=== PATIENT | female | born 2000 | race Caucasian/White ===

== ENCOUNTER 2022-02-27 11:05 | Emergency (ER) | payer OTHER, SELFPAY ==
[2022-02-27 11:16] VITALS: BP 105/61; PULSE 102; RESP 14; TEMP 37.2; O2SAT 99
--- NOTE | 2022-02-27 11:52 | ED.GENADULT ---
HPI - General Adult General Chief complaint: Upper Respiratory Infection Stated complaint: pink eye and upper respiratory Source: patient Mode of arrival: ambulatory Limitations: no limitations History of Present Illness HPI narrative: Patient presents for evaluation of sick symptoms for the last 3 days. Symptoms include sinus congestion, yellow nasal discharge, productive cough of yellow sputum and sore throat. No fever, chills, nausea, vomiting. Her son has similar symptoms. No personal history of COVID. She has had COVID vaccination. She is currently , approximately 8 weeks gestation. No vaginal bleeding or abdominal pain. He has an appointment with her CHIEF SCIENTIFIC OFFICER this coming Monday for an ultrasound. She also reports right eye redness and irritation that started today yesterday. She woke up with her right eye matted with thick mucopurulent discharge from her eye. She states that her son had pinkeye about 1 week ago. Related Data Home Medications Medication Instructions Recorded Confirmed polyethylene glycol 3350 17 17 g PO DAILY 02/27/22 02/27/22 gram/dose oral powder (Miralax) vit no.95-ferrous 1 tablet PO DAILY 02/27/22 02/27/22 fumarate 28 mg-folic acid 800 mcg tablet () Allergies Allergy/AdvReac Type Severity Reaction Status Date / Time Penicillins Allergy Mild Rash Verified 02/27/22 11:29 Review of Systems Review of Systems: CONSTITUTIONAL: Denies fever, chills, or sweats. EYES: Reports right eye redness with thick discharge and associated irritation ENT: Reports sinus congestion, thick yellow drainage from her nares, and sore throat CARDIOVASCULAR: Denies chest pain, palpitations, or edema. RESPIRATORY: Reports productive cough of yellow sputum. Denies shortness of breath. GASTROINTESTINAL: Denies abdominal pain, nausea, vomiting, or diarrhea. GENITOURINARY: Denies dysuria or hematuria. SKIN: Denies rash or itching. MUSCULOSKELETAL: Denies back pain, joint pain, or myalgia. NEUROLOGIC: Denies headache, numbness, dizziness, or weakness. PSYCHIATRIC: Denies anxiety or depression. [facility] Past Medical History Medical History (Updated 02/27/22 @ 12:23 by Orlin Jeffrey, ISAI, SARAH) No pertinent past medical history Surgical History Surgical History No pertinent past surgical history Family History Family History Mother Family history non-contributory Social History Social History Smoking status: Never smoker Alcohol intake: never Additional living arrangements comments: Lives with fianc? and son Gender identity (if verbalized by the patient): Female Sexual Orientation (if Verbalized by the Patient): Straight or Heterosexual Spiritual care concerns: No Exam Narrative: GENERAL: Well-appearing, well-nourished, and in no acute distress. HEAD: Normocephalic, atraumatic. EYES: PERRLA and EOMI. right conjunctival injection. ENT: Nares clear, no rhinorrhea or epistaxis. Mucous membranes moist. Oropharynx without tonsillar hypertrophy exudate or other lesions. Bilateral TMs pearly gordon nonbulging NECK: Supple. No adenopathy or masses. No carotid bruits or JVD CHEST: Clear to auscultation. No respiratory distress. No wheezes rales or rhonchi HEART: Regular rate and rhythm. No murmur heard. Normal peripheral pulses. ABDOMEN: Soft, nontender, nondistended, normal active bowel sounds. EXTREMITIES: Normal range of motion. No edema. SKIN: Warm, dry, no rash. NEURO: No focal deficits. Alert and oriented x3. PSYCH: Normal mood and affect. Course Course Emergency Course: This is a 21-year-old female who presented with complaints of right eye irritation after she was exposed to pinkeye. Her physical exam is consistent with bacterial conjunctivitis. In terms of her sick symptoms
== END 2022-02-27 12:25 | disposition home or self-care (01) ==
PROVIDERS: Emergency Provider Nurse Practitioner
DX: O99.891 Other specified diseases and conditions complicating pregnancy (principal); Z3A.08 8 weeks gestation of pregnancy; H10.31 Unspecified acute conjunctivitis, right eye; O98.511 Other viral diseases complicating pregnancy, first trimester; B34.9 Viral infection, unspecified
CPT/HCPCS: 87081; 87880; 99203; G0463

== ENCOUNTER 2022-03-20 16:28 | Emergency (ER) | payer OTHER, SELFPAY ==
--- NOTE | 2022-03-20 16:32 | ED.URI ---
HPI - URI/Sore Throat General Chief Complaint: Upper Respiratory Infection Stated Complaint: Shortness of Breath/Cough Time Seen by Provider: 03/20/22 16:32 Source: patient and RN notes reviewed History of Present Illness HPI Narrative: Patient is a 21-year-old female who presents the urgent care with complaints of persistent cough. Patient was evaluated at our facility recently and had a negative strep test and was diagnosed with an upper respiratory infection and suggested to take Robitussin-DM. Patient states that she has not tried anything [id number] and has not followed up with her BLOOD BANK WORKER or her physician. Patient is currently . Denies of any fevers, nausea, vomiting or chest pain. No other acute complaints. No acute distress noted. Patient aware of the plan of care. Some parts of this dictation were generated by voice recognition software and may contain typographical and/or grammatical inaccuracies. Related Data Home Medications Medication Instructions Recorded Confirmed polyethylene glycol 3350 17 17 g PO DAILY 02/27/22 02/27/22 gram/dose oral powder (Miralax) vit no.95-ferrous 1 tablet PO DAILY 02/27/22 02/27/22 fumarate 28 mg-folic acid 800 mcg tablet () Allergies Allergy/AdvReac Type Severity Reaction Status Date / Time Penicillins Allergy Mild Rash Verified 03/20/22 16:45 Review of Systems Review of Systems: CONSTITUTIONAL: Denies fever, chills, or sweats. EYES: Denies visual changes, redness, or discharge. ENT: Denies rhinorrhea, congestion, sore throat, or otalgia. CARDIOVASCULAR: Denies chest pain, palpitations, or edema. RESPIRATORY: Reports a persistent cough without dyspnea GASTROINTESTINAL: Denies abdominal pain, nausea, vomiting, or diarrhea. GENITOURINARY: Denies dysuria or hematuria. SKIN: Denies rash or itching. MUSCULOSKELETAL: Denies back pain, joint pain, or myalgia. NEUROLOGIC: Denies headache, numbness, or weakness. All other systems reviewed are negative, except as documented in HPI. [facility] Past Medical History Medical History (Updated 03/20/22 @ 17:09 by ISAI Delcid) No pertinent past medical history Surgical History Surgical History No pertinent past surgical history Family History Family History Mother Family history non-contributory Social History Social History Smoking status: Never smoker Alcohol intake: never Additional living arrangements comments: Lives with fianc? and son Gender identity (if verbalized by the patient): Female Sexual Orientation (if Verbalized by the Patient): Straight or Heterosexual Spiritual care concerns: No Comments At the time of my signature, I reviewed and agree with the nursing past medical, surgical, social, and family history. There is no relevant family history pertinent to the patient complaint. Exam Narrative: GENERAL: This is a well-nourished, well-developed patient, in no apparent distress. HEAD: normocephalic, atraumatic. EYES: PERRL. Sclera clear/white. Vision is grossly intact. EARS: External ears normal, auditory canals clear and without drainage, TMs normal without perforation. Hearing grossly intact. NOSE: External nose normal with no obvious nasal discharge, nares without redness, no rhinorrhea. THROAT: Mucous membranes moist, posterior pharynx clear. NECK: Neck supple CARDIOVASCULAR: Regular rate and rhythm without murmurs, gallops, or rubs. RESPIRATORY: Clear to auscultation. Breath sounds equal bilaterally. No wheezes, rales, or rhonchi. No notable cough or dyspnea noted on exam SKIN: warm, intact with no suspicious lesions or rash, good texture and turgor. NEURO: awake, alert, and oriented to person, place and time. There were no obvious focal neurologic abnormalities. EXTREMITIE
[2022-03-20 16:38] VITALS: BP 110/61; PULSE 106; RESP 14; TEMP 36.9; O2SAT 100
[2022-03-20 16:46] VITALS: BP 110/61; PULSE 106; RESP 14; TEMP 36.9; O2SAT 100
== END 2022-03-20 17:10 | disposition home or self-care (01) ==
PROVIDERS: Emergency Provider Nurse Practitioner Family
DX: R05.3 Chronic cough (principal)
CPT/HCPCS: 99211; G0463

== ENCOUNTER 2022-07-23 15:31 | Emergency (ER) | payer OTHER, SELFPAY ==
[2022-07-23 15:42] VITALS: BP 106/59; PULSE 126; RESP 16; TEMP 36.5; O2SAT 100
--- NOTE | 2022-07-23 15:55 | ED.URI ---
HPI - URI/Sore Throat General Chief Complaint: Upper Respiratory Infection Stated Complaint: Chest Congestion/Cough Time Seen by Provider: 07/23/22 15:55 History of Present Illness HPI Narrative: patient presents with a 4 day hisotry of congestion sore throat cough and fever no shortness of breath and no chest pain patient is 28 weeks with no related problems. Related Data Home Medications Medication Instructions Recorded Confirmed polyethylene glycol 3350 17 17 g PO DAILY 02/27/22 07/23/22 gram/dose oral powder (Miralax) vit no.95-ferrous 1 tablet PO DAILY 02/27/22 07/23/22 fumarate 28 mg-folic acid 800 mcg tablet () ferrous sulfate 325 mg (65 mg 325 mg DAILY 07/23/22 07/23/22 iron) tablet (FeroSul) Allergies Allergy/AdvReac Type Severity Reaction Status Date / Time Penicillins Allergy Mild Rash Verified 07/23/22 15:49 cinthia Allergy Rash Verified 07/23/22 15:49 Review of Systems Review of Systems: CONSTITUTIONAL: Denies chills, or sweats. Reports fever and generalized body aches EYES: Denies visual changes, redness, or discharge. ENT: Denies otalgia. Reports nasal congestion runny nose and sore throat CARDIOVASCULAR: Denies chest pain, palpitations, or edema. RESPIRATORY: Denies dyspnea. Reports occasional cough GASTROINTESTINAL: Denies abdominal pain, nausea, vomiting, or diarrhea. GENITOURINARY: Denies dysuria or hematuria. SKIN: Denies rash or itching. MUSCULOSKELETAL: Denies back pain, joint pain, or myalgia. Reports generalized body aches NEUROLOGIC: Denies headache, numbness, or weakness. PSYCHIATRIC: Denies anxiety or depression. [facility] Past Medical History Medical History (Updated 07/23/22 @ 16:37 by ISAI Cunningham) No pertinent past medical history Surgical History Surgical History No pertinent past surgical history Family History Family History Mother Family history non-contributory Social History Social History Smoking status: Never smoker Alcohol intake: never Additional living arrangements comments: Lives with figrisel? and son Gender identity (if verbalized by the patient): Female Sexual Orientation (if Verbalized by the Patient): Straight or Heterosexual Spiritual care concerns: No Comments At time of signature, agree with nursing past medical, surgical, social and family history. There is no relevant family history pertinent to the presenting complaint Exam Narrative: The patient is a well-developed, well-nourished in no acute distress. SKIN: Skin is warm and dry without erythema, swelling or exudate. There is good turgor. No tenting. HEAD: Atraumatic. Normocephalic. No temporal or scalp tenderness. EYES: Moist and bright. Sclera and conjunctivae normal. No discharge. PERRLA. Extraocular motions intact. Gross visual acuity intact. EARS: Pinna is normal shape and contour. Clear external auditory canals. TM pearly love with good cone of light, no erythema or suppuration. Bilateral cerumen noted no gross hearing deficit. NOSE: pink, moist mucosa with good air movement. Clear rhinorrhea without nasal flaring. Septum midline. Mouth: moist mucous membranes. THROAT; mild erythema noted to posterior oropharynx with moderate postnasal drainage. Without exudate or ulceration.. Uvula midline. Normal movement of soft palate. NECK: Supple and nontender with full range of motion without discomfort. No meningeal signs. LUNGS: Equal and bilateral breath sounds without wheezes, rales or rhonchi. CHEST: The chest wall is without retractions or use of accessory muscles. HEART: Has a regular rate and rhythm without murmur, gallops, click or rub. ABDOMEN: Soft, nontender with positive active bowel sounds. No rebound tenderness. EXTREMITIES: Without cyanosi
== END 2022-07-23 16:43 | disposition home or self-care (01) ==
PROVIDERS: Emergency Provider Nurse Practitioner Family
DX: O98.513 Other viral diseases complicating pregnancy, third trimester (principal); Z3A.28 28 weeks gestation of pregnancy; B34.9 Viral infection, unspecified; J10.1 Influenza due to other identified influenza virus with other respiratory manifestations; Z20.822 Contact with and (suspected) exposure to COVID-19
CPT/HCPCS: 87081; 87426; 87804; 87880; 99213; C9803; G0463

== ENCOUNTER 2023-02-20 17:33 | Emergency (ER) | payer OTHER, SELFPAY ==
[2023-02-20 17:36] VITALS: BP 119/79; PULSE 71; RESP 20; TEMP 36.7; O2SAT 100
--- NOTE | 2023-02-20 17:36 | ED.EYEPROB ---
HPI - Eye Problem General Chief complaint: Eye Problems Stated complaint: poss pink eye History of Present Illness HPI Narrative: PATIENT PRESENTS WITH EYE REDDNESS AND CRUSTING NO INJURY TO EYE NO VISION PROBLEMS EXPOSED TO PINK EYE RIGHT EYE Related Data Home Medications Medication Instructions Recorded Confirmed ferrous sulfate 325 mg (65 mg 325 mg PO DAILY 07/23/22 02/20/23 iron) tablet (FeroSul) medroxyprogesterone 150 mg/mL 150 mg IM [id number] 02/20/23 02/20/23 intramuscular syringe paroxetine HCl 20 mg tablet 20 mg PO DAILY 02/20/23 02/20/23 Allergies Allergy/AdvReac Type Severity Reaction Status Date / Time Penicillins Allergy Mild Rash Verified 02/20/23 17:40 cinthia Allergy Rash Verified 02/20/23 17:40 Review of Systems Review of Systems: CONSTITUTIONAL: DENIES FEVER, CHILLS, OR SWEATS. EYES: DENIES VISUAL CHANGES, REDNESS, OR DISCHARGE. ENT: DENIES RHINORRHEA, CONGESTION, SORE THROAT, OR OTALGIA. CARDIOVASCULAR: DENIES CHEST PAIN, PALPITATIONS, OR EDEMA. RESPIRATORY: DENIES COUGH OR DYSPNEA. GASTROINTESTINAL: DENIES ABDOMINAL PAIN, NAUSEA, VOMITING, OR DIARRHEA. GENITOURINARY: DENIES DYSURIA OR HEMATURIA. SKIN: DENIES RASH OR ITCHING. MUSCULOSKELETAL: DENIES BACK PAIN, JOINT PAIN, OR MYALGIA. NEUROLOGIC: DENIES HEADACHE, NUMBNESS, OR WEAKNESS. PSYCHIATRIC: DENIES ANXIETY OR DEPRESSION. [facility] Past Medical History Medical History (Updated 02/20/23 @ 17:40 by ISAI Cunningham) No pertinent past medical history Surgical History Surgical History No pertinent past surgical history Family History Family History Mother Family history non-contributory Social History Social History Smoking status: Never smoker Alcohol intake: never Additional living arrangements comments: Lives with fianc? and son Gender identity (if verbalized by the patient): Female Sexual Orientation (if Verbalized by the Patient): Straight or Heterosexual Spiritual care concerns: No Comments AT TIME OF SIGNATURE, AGREE WITH NURSING PAST MEDICAL, SURGICAL, SOCIAL AND FAMILY HISTORY. THERE IS NO RELEVANT FAMILY HISTORY PERTINENT TO THE PRESENTING COMPLAINT Exam Narrative: GENERAL: WELL-APPEARING, WELL-NOURISHED, AND IN NO ACUTE DISTRESS. HEAD: NORMOCEPHALIC, ATRAUMATIC. EYES: PERRLA AND EOMI. ENT: NARES CLEAR, NO RHINORRHEA OR EPISTAXIS. MUCOUS MEMBRANES MOIST. NECK: SUPPLE. CHEST: CLEAR TO AUSCULTATION. NO RESPIRATORY DISTRESS. HEART: REGULAR RATE AND RHYTHM. NO MURMUR HEARD. NORMAL PERIPHERAL PULSES. ABDOMEN: SOFT, NONTENDER, NONDISTENDED, NORMAL ACTIVE BOWEL SOUNDS. EXTREMITIES: NORMAL RANGE OF MOTION. NO EDEMA. SKIN: WARM, DRY, NO RASH. NEURO: NO FOCAL DEFICITS. ALERT AND ORIENTED X3. TRAM COMA SCALE EYE OPENING: SPONTANEOUS 4 TRAM COMA SCALE MOTOR: OBEYS COMMANDS 6 TRAM COMA SCALE VERBAL: ORIENTED 5 TRAM COMA SCALE TOTAL 15 Eyes: Conjunctivae: conjunctival abnormality (CONJUNCTIVITIS) right Course Course Level of Care: Express Care Visit MDM - Eye Problem Differential Diagnosis Differential diagnosis: Likely corneal abrasion, conjunctivitis, acute iritis, hyphema, periorbital cellulitis, subconjunctival hemorrhage, glaucoma, corneal ulcer and ruptured globe Discharge Plan Discharge Clinical Impression: Bacterial conjunctivitis Patient Disposition: Home, Self-Care Condition: Stable Instructions: Antibiotic Form, Conjunctivitis (ED) Additional Instructions: Conjunctivitis is spread by [id number] contact or by touching a contaminated surface. You can use artificial tears, cold and warm compresses-use, different compress for each eye, and increase hygiene such as hand-washing. Do not wear contacts for 1 week, if applicable. Do not return for 24 hours to daycare, school, workp
[2023-02-20 17:41] VITALS: BP 119/79; PULSE 71; RESP 20; TEMP 36.7; O2SAT 100
== END 2023-02-20 17:50 | disposition home or self-care (01) ==
PROVIDERS: Emergency Provider Nurse Practitioner Family
DX: H10.9 Unspecified conjunctivitis (principal)
CPT/HCPCS: 99213; G0463

== ENCOUNTER 2023-04-03 09:04 | Emergency (ER) | payer OTHER, SELFPAY ==
--- NOTE | 2023-04-03 09:09 | ED.URI ---
HPI - URI/Sore Throat General Chief Complaint: Upper Respiratory Infection Stated Complaint: Headache/Fever Time Seen by Provider: 04/03/23 09:09 Source: patient Mode of arrival: ambulatory Limitations: no limitations History of Present Illness HPI Narrative: Azalia is a 22-year-old female patient presenting to the clinic today with complaints of headache and fever x2 days. States highest fever was 100? F. No chills or body aches. She reports she has had positive exposure to someone with COVID. MD elicited complaint: fever and other (Headache) Related Data Home Medications Medication Instructions Recorded Confirmed ferrous sulfate 325 mg (65 mg 325 mg PO DAILY 07/23/22 04/03/23 iron) tablet (FeroSul) paroxetine HCl 20 mg tablet 20 mg PO DAILY 02/20/23 04/03/23 Allergies Allergy/AdvReac Type Severity Reaction Status Date / Time cinthia Allergy Mild Rash Verified 04/03/23 09:38 Penicillins Allergy Mild Rash Verified 04/03/23 09:38 Review of Systems Review of Systems: Pertinent positives per HPI. Patient denies any chills, rash, visual changes, dizziness, cough, shortness of breath, chest pain, palpitations, nausea, vomiting, diarrhea, constipation, abdominal pain, or any urinary issues. [facility] Past Medical History Medical History No pertinent past medical history Surgical History Surgical History No pertinent past surgical history Family History Family History Mother Family history non-contributory Social History Social History Smoking status: Never smoker Alcohol intake: never Additional living arrangements comments: Lives with fianc? and son Gender identity (if verbalized by the patient): Female Sexual Orientation (if Verbalized by the Patient): Straight or Heterosexual Spiritual care concerns: No Comments At the time of my signature, I reviewed and agree with the nursing past medical, surgical, social, and family history. There is no relevant family history pertinent to the patient complaint. Exam Narrative: General: Well-developed, well nourished, in no apparent distress Head: Normocephalic, atraumatic Eyes: Pupils equally round and reactive to light bilaterally, EOM intact, sclera and conjunctive clear, no discharge, lids normal Ears: TMs intact and clear, ear canals ceremonious, no drainage, grossly hearing normal. Nose: Nares patent, no discharge, no inflammation, no sinus tenderness. Mouth: Oral pharynx without lesions or masses, good dentition, MMM. Neck: Supple, trachea midline, no enlargement of anterior or posterior cervical nodes, no thyroid masses or goiter palpable. Cardio: Regular rate and rhythm, s1 and s2 normal, no murmur appreciated. Resp: Clear to auscultation bilaterally, no rhonchi, rales, wheezing or rubs Course Course Emergency Course: Portions of this record may have been created with voice recognition software. Level of Care: Express Care Visit Vital Signs Vital signs: Vital signs reviewed MDM - URI/Sore Throat MDM Narrative Medical decision making narrative: At the time of visit patient is resting comfortably on the exam table. COVID testing was performed and is negative in the clinic today. I suspect patient has viral syndrome with an exposure to COVID. Supportive measures were discussed with the patient she voiced understanding of discharge instructions and she agrees to treatment plan. Work note was given. Differential Diagnosis Differential diagnosis: Likely upper respiratory infection, otitis media, sinusitis, viral infection, bronchitis, influenza, pharyngitis and other (COVID) Discharge Plan Discharge Clinical Impression: Viral infection, Exposure to 2019 novel coronavirus Patient
[2023-04-03 09:20] VITALS: BP 116/68; PULSE 86; RESP 16; TEMP 36.4; O2SAT 100
== END 2023-04-03 09:57 | disposition home or self-care (01) ==
PROVIDERS: Emergency Provider Nurse Practitioner Family
DX: B34.9 Viral infection, unspecified (principal); Z20.822 Contact with and (suspected) exposure to COVID-19
CPT/HCPCS: 87426; 99213; C9803; G0463

== ENCOUNTER 2023-05-15 17:38 | Emergency (ER) | payer OTHER, SELFPAY ==
[2023-05-15 17:44] VITALS: BP 129/74; PULSE 90; RESP 16; TEMP 36.7; O2SAT 100
--- NOTE | 2023-05-15 18:04 | ED.EXTPRO ---
HPI - Extremity Problem General Chief complaint: Extremity Problem,Nontraumatic Stated complaint: left thumb Source: patient and RN notes reviewed History of Present Illness HPI Narrative: 23 yo F presents to urgent care with complaints of left thumb pain with blister. Pt states she woke up this morning with random left thumb pad pain. Pt noticed a little redness so she put Neosporin on it and a bandaid. Pt states she looked at it today and a blister to the area. Pt reports tenderness to the area. Denies any known injury. Denies any other symptoms. Related Data Home Medications Medication Instructions Recorded Confirmed ferrous sulfate 325 mg (65 mg 325 mg PO DAILY 07/23/22 04/03/23 iron) tablet (FeroSul) paroxetine HCl 20 mg tablet 20 mg PO DAILY 02/20/23 04/03/23 Allergies Allergy/AdvReac Type Severity Reaction Status Date / Time cinthia Allergy Mild Rash Verified 04/03/23 09:38 Penicillins Allergy Mild Rash Verified 04/03/23 09:38 Review of Systems Review of Systems: CONSTITUTIONAL: Denies fever, chills, or sweats. EYES: Denies visual changes, redness, or discharge. ENT: Denies otalgia and sore throat CARDIOVASCULAR: Denies chest pain, palpitations, or edema. RESPIRATORY: Denies cough or dyspnea. GASTROINTESTINAL: Denies abdominal pain, nausea, vomiting, or diarrhea. GENITOURINARY: Denies dysuria or hematuria. SKIN: Left thumb pain MUSCULOSKELETAL: Denies back pain, joint pain, or myalgia. NEUROLOGIC: Denies headache, numbness, or weakness. Pertinent positives per HPI. [facility] Past Medical History Medical History No pertinent past medical history Surgical History Surgical History No pertinent past surgical history Family History Family History Mother Family history non-contributory Social History Social History Smoking status: Never smoker Alcohol intake: never Additional living arrangements comments: Lives with fianc? and son Gender identity (if verbalized by the patient): Female Sexual Orientation (if Verbalized by the Patient): Straight or Heterosexual Spiritual care concerns: No Comments At the time of my signature, I reviewed and agree with the nursing past medical, surgical, social, and family history. There is no relevant family history pertinent to the patient complaint. Exam Narrative: GENERAL: This is a well-nourished, well-developed patient, in no apparent distress. HEAD: normocephalic, atraumatic. EYES: Sclera clear/white. Vision is grossly intact. EARS: External ears normal, auditory canals clear and without drainage. Hearing grossly intact. NOSE: External nose normal with no obvious nasal discharge, nares without redness, no rhinorrhea. THROAT: Mucous membranes moist, posterior pharynx clear. NECK: Neck supple, non-tender without lymphadenopathy, masses or thyromegaly. CARDIOVASCULAR: Regular rate RESPIRATORY: No respiratory distress SKIN: 1 cm blister to left thumb pad with possible, small, cut under blister. tender to the touch. NEURO: awake, alert, and oriented to person, place and time. There were no obvious focal neurologic abnormalities. EXTREMITIES: No clubbing, cyanosis, or edema. No joint tenderness, effusion, or edema noted. BACK: Nontender without deformity or crepitus. No flank tenderness. Course Course Level of Care: Express Care Visit Vital Signs Vital signs: Vital Signs Temperature 98.1 F 05/15/23 17:44 Pulse Rate 90 05/15/23 17:44 Respiratory Rate 16 05/15/23 17:44 Blood Pressure 129/74 05/15/23 17:44 Pulse Oximetry 100 05/15/23 17:44 Oxygen Delivery Room Air 05/15/23 17:44 Temperature 98.1 F 05/15/23 17:44 Pulse Rate 90 05/15/23 17:44 Respiratory Rate 16
== END 2023-05-15 18:18 | disposition home or self-care (01) ==
PROVIDERS: Emergency Provider Nurse Practitioner Family
DX: S60.322A Blister (nonthermal) of left thumb, initial encounter (principal); X58.XXXA Exposure to other specified factors, initial encounter
CPT/HCPCS: 99213; G0463

== ENCOUNTER 2023-06-12 16:19 | Emergency (ER) | payer OTHER, SELFPAY ==
--- NOTE | 2023-06-12 16:46 | ED.URI ---
HPI - URI/Sore Throat General Chief Complaint: Upper Respiratory Infection Stated Complaint: Congestion/Headache/Cough Related Data Home Medications Medication Instructions Recorded Confirmed ferrous sulfate 325 mg (65 mg 325 mg PO DAILY 07/23/22 04/03/23 iron) tablet (FeroSul) paroxetine HCl 20 mg tablet 20 mg PO DAILY 02/20/23 04/03/23 Allergies Allergy/AdvReac Type Severity Reaction Status Date / Time cinthia Allergy Mild Rash Verified 04/03/23 09:38 Penicillins Allergy Mild Rash Verified 04/03/23 09:38 [facility] Past Medical History Medical History No pertinent past medical history Surgical History Surgical History No pertinent past surgical history Family History Family History Mother Family history non-contributory Social History Social History Smoking status: Never smoker Alcohol intake: never Additional living arrangements comments: Lives with fianc? and son Gender identity (if verbalized by the patient): Female Sexual Orientation (if Verbalized by the Patient): Straight or Heterosexual Spiritual care concerns: No Discharge Plan Discharge Prescriptions: No Action ferrous sulfate [FeroSul] 325 mg (65 mg iron) tablet 325 mg PO DAILY paroxetine HCl 20 mg tablet 20 mg PO DAILY mupirocin 2 % ointment 1 applic topical BID Qty: 22 0RF Follow-up/Referrals: PHYSICIAN,SNOW SHOVELER [Primary Care Provider] -
--- NOTE | 2023-06-12 16:47 | ED.GENADULT ---
HPI - General Adult General Chief complaint: Upper Respiratory Infection Stated complaint: Congestion/Headache/Cough Time Seen by Provider: 06/12/23 16:47 Source: patient, RN notes reviewed and old records reviewed Mode of arrival: ambulatory Limitations: no limitations History of Present Illness HPI narrative: 23 year old female who presents to [facility] care with complaints of sinus congestion,headache, facial pressure,with deep cough for the past 2 weeks. Patient states that she has some frontal headache pain, her upper gums hurt and her teeth even hurt.. Patient reports that she has taken Robitussin and also Mucinex for her symptoms without resolution. 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 Patient denies any recent fevers, body aches or any chills. MD complaint: sinus headache, congestion deep cough for 2 weeks Onset (ago): week(s) (2) Severity scale (1-10): 8 Treatments prior to arrival: other (Robitussin and Mucinex) Related Data Home Medications Medication Instructions Recorded Confirmed ferrous sulfate 325 mg (65 mg 325 mg PO DAILY 07/23/22 06/12/23 iron) tablet (FeroSul) paroxetine HCl 20 mg tablet 20 mg PO DAILY 02/20/23 06/12/23 Allergies Allergy/AdvReac Type Severity Reaction Status Date / Time cinthia Allergy Mild Rash Verified 06/12/23 17:02 Penicillins Allergy Mild Rash Verified 06/12/23 17:02 Review of Systems Review of Systems: CONSTITUTIONAL: Denies malaise, chills, sweats, or fever. EYES: Denies visual changes, redness, or discharge. ENT: Reports rhinorrhea, congestion, sinus pain, no otalgia, some sore throat. CARDIOVASCULAR: Denies chest pain, palpitations, or edema. RESPIRATORY: Reports deep cough.? Denies dyspnea. GASTROINTESTINAL: Denies abdominal pain, nausea, vomiting, diarrhea SKIN: Denies rash or itching. MUSCULOSKELETAL: Denies myalgia. NEUROLOGIC:Reports headache. All systems reviewed & are unremarkable except as noted in HPI and below PMFSH Past Medical History Medical History (Updated 06/13/23 @ 10:30 by Cecilia Gaitan NP) Anemia Anxiety and depression Bilateral ankle fractures Surgical History Surgical History No pertinent past surgical history Family History Family History Mother Family history non-contributory Social History Social History Smoking status: Never smoker Alcohol intake: never Additional living arrangements comments: Lives with fianc? and son Gender identity (if verbalized by the patient): Female Sexual Orientation (if Verbalized by the Patient): Straight or Heterosexual Spiritual care concerns: No Comments At time of signature, agree with nursing past medical, surgical, social and family history. There is no relevant family history pertinent to the presenting complaint Exam Narrative: GENERAL: Well-appearing, well-nourished, and in no acute distress. HEAD: Normocephalic EYES: PERRLA, conjunctivae clear ENT: Nares clear, turbinates edematous and erythematous, clear to green tinged discharge, sinus pressure and headache. Mucous membranes moist. TM pearly gordon with dull light reflex bilaterally; no tragal tenderness. Oropharynx erythematous without lesions. Tonsils not enlarged and without exudate, no drooling, no hoarseness, no trismus, uvula midline.post nasal drainage NECK: Supple. No lymphadenopathy CHEST: Clear to auscultation, breath sounds equal. No wheezing, rhonchi, rales, or stridor. No respiratory distress, speaks in full sentences.harsh cough noted SAO2 99% on room air HEART: Regular rate and rhythm. No murmur heard. SKIN: Warm, dry, no rash. NEURO: Alert and oriented x3. PSYCH: Normal mood and affect Course Course Emergency Course: Patient is aware of diagnosis, under
[2023-06-12 17:03] VITALS: BP 119/69; PULSE 83; RESP 18; TEMP 36.7; O2SAT 99
== END 2023-06-12 17:16 | disposition home or self-care (01) ==
PROVIDERS: Emergency Provider Registered Nurse
DX: J01.40 Acute pansinusitis, unspecified (principal); Z79.899 Other long term (current) drug therapy
CPT/HCPCS: 87880; 99213; G0463

== ENCOUNTER 2023-06-19 16:51 | Emergency (ER) | payer OTHER, SELFPAY ==
--- NOTE | ~2023-06-19 | XR_ITS ---
EXAMINATION: XR ribs RT 2V DATE: 06/19/2023 17:24 INDICATION: Right posterior rib pain. Fall. TECHNIQUE: 2 views of the right ribs on 3 radiographs were obtained. COMPARISON: None. FINDINGS: There is no right-sided pneumonia, pleural effusion, or pneumothorax. The heart size is nor mal. IMPRESSION: 1. No rib fracture. Reviewed, dictated and finalized at location E. IMPRESSION: 1. No rib fracture.
[2023-06-19 17:00] VITALS: BP 122/69; PULSE 85; RESP 20; TEMP 36.6; O2SAT 98
--- NOTE | 2023-06-19 17:25 | ED.URI ---
HPI - URI/Sore Throat General Chief Complaint: Back Pain/Injury Stated Complaint: Back Pain/Cough Time Seen by Provider: 06/19/23 17:05 Source: patient Mode of arrival: ambulatory Limitations: no limitations History of Present Illness HPI Narrative: Azalia is a 23-year-old female patient presenting to the clinic today with complaints of right sided thoracic back pain and a cough. Reports she coughs so hard she thinks she popped a rib out of place this morning. Was recently treated for a sinus infection and given azithromycin. States she still has a cough from this. Cough is productive at times. She denies any fever or chills. Does have pain to the right thoracic back with respirations MD elicited complaint: sore throat and nasal congestion Related Data Home Medications Medication Instructions Recorded Confirmed ferrous sulfate 325 mg (65 mg 325 mg PO DAILY 07/23/22 06/12/23 iron) tablet (FeroSul) paroxetine HCl 20 mg tablet 20 mg PO DAILY 02/20/23 06/12/23 Allergies Allergy/AdvReac Type Severity Reaction Status Date / Time cinthia Allergy Mild Rash Verified 06/19/23 17:02 Penicillins Allergy Mild Rash Verified 06/19/23 17:02 Review of Systems Review of Systems: Pertinent positives per HPI. Patient denies any fever, chills, rash, headache, visual changes, dizziness, shortness of breath, chest pain, palpitations, nausea, vomiting, diarrhea, constipation, abdominal pain, or any urinary issues. [facility] Past Medical History Medical History Anemia Anxiety and depression Bilateral ankle fractures Surgical History Surgical History No pertinent past surgical history Family History Family History Mother Family history non-contributory Social History Social History Smoking status: Never smoker Alcohol intake: never Additional living arrangements comments: Lives with fianc? and son Gender identity (if verbalized by the patient): Female Sexual Orientation (if Verbalized by the Patient): Straight or Heterosexual Spiritual care concerns: No Comments At the time of my signature, I reviewed and agree with the nursing past medical, surgical, social, and family history. There is no relevant family history pertinent to the patient complaint. Exam Narrative: General: Well-developed, well nourished, in no apparent distress Head: Normocephalic, atraumatic Eyes: Pupils equally round and reactive to light bilaterally, EOM intact, sclera and conjunctive clear, no discharge, lids normal Ears: TMs intact and clear, ear canals clear, no drainage, grossly hearing normal. Nose: Nares patent, clear discharge, no inflammation, no sinus tenderness. Mouth: Oral pharynx without lesions or masses, good dentition, MMM. Postnasal drip Neck: Supple, trachea midline, no enlargement of anterior or posterior cervical nodes, no thyroid masses or goiter palpable. Cardio: Regular rate and rhythm, s1 and s2 normal, no murmur appreciated. Resp: Clear to auscultation bilaterally, no rhonchi, rales, wheezing or rubs Musculoskeletal: No deformity, tender to palpation over rhomboid musculature, pain to this area with raising her right arm, grossly normal range of motion, muscle strength strong and equal, peripheral pulse strong, no edema, no cyanosis, normal gait and station Course Course Emergency Course: Portions of this record may have been created with voice recognition software. Level of Care: Express Care Visit Vital Signs Vital signs: Vital Signs Temperature 36.6 C 06/19/23 17:00 Pulse Rate 85 06/19/23 17:00 Respiratory Rate 20 06/19/23 17:00 Blood Pressure 122/69 06/19/23 17:00 Pulse Oximetry 98 06/19/23 17:00 Oxygen Delivery Room Air 06/19/23 17:00
== END 2023-06-19 17:37 | disposition home or self-care (01) ==
PROVIDERS: Emergency Provider Nurse Practitioner Family
DX: S46.911A Strain of unspecified muscle, fascia and tendon at shoulder and upper arm level, right arm, initial encounter (principal); J01.10 Acute frontal sinusitis, unspecified; X50.0XXA Overexertion from strenuous movement or load, initial encounter
CPT/HCPCS: 71100; 99213; G0463

== ENCOUNTER 2023-08-06 18:43 | Emergency (ER) | payer OTHER, SELFPAY ==
[2023-08-06 18:54] VITALS: BP 110/70; PULSE 79; RESP 18; TEMP 36.9; O2SAT 99
--- NOTE | 2023-08-06 19:58 | ED.GENADULT ---
HPI - General Adult General Chief complaint: Upper Respiratory Infection Stated complaint: strep Source: patient Mode of arrival: ambulatory Limitations: no limitations History of Present Illness HPI narrative: Patient presents for evaluation of cough and sore throat. Symptom onset 1-2 days ago. Her sons are both being evaluated here for similar symptoms. She reports chills, nausea, diarrhea. She denies fever and vomiting. She is not taking any medication for her symptoms. Related Data Home Medications Medication Instructions Recorded Confirmed ferrous sulfate 325 mg (65 mg 325 mg PO DAILY 07/23/22 08/06/23 iron) tablet (FeroSul) paroxetine HCl 20 mg tablet 20 mg PO DAILY 02/20/23 08/06/23 medroxyprogesterone 150 mg/mL See Rx Instructions .Route .COMPLEX 08/06/23 08/06/23 intramuscular syringe Allergies Allergy/AdvReac Type Severity Reaction Status Date / Time cinthia Allergy Mild Rash Verified 08/06/23 19:43 Penicillins Allergy Mild Rash Verified 08/06/23 19:43 Review of Systems Review of Systems: CONSTITUTIONAL: Denies fever, chills, or sweats. EYES: Denies visual changes, redness, or discharge. ENT: Reports sore throat. Denies rhinorrhea, congestion, or otalgia. CARDIOVASCULAR: Denies chest pain, palpitations, or edema. RESPIRATORY: Reports cough. Denies dyspnea. GASTROINTESTINAL: Denies abdominal pain, nausea, vomiting, or diarrhea. GENITOURINARY: Denies dysuria or hematuria. SKIN: Denies rash or itching. MUSCULOSKELETAL: Denies back pain, joint pain, or myalgia. NEUROLOGIC: Denies headache, numbness, dizziness, or weakness. PSYCHIATRIC: Denies anxiety or depression. [facility] Past Medical History Medical History Anemia Anxiety and depression Bilateral ankle fractures Surgical History Surgical History No pertinent past surgical history Family History Family History Mother Family history non-contributory Social History Social History Smoking status: Never smoker Alcohol intake: never Additional living arrangements comments: Lives with figrisel? and son Gender identity (if verbalized by the patient): Female Sexual Orientation (if Verbalized by the Patient): Straight or Heterosexual Spiritual care concerns: No Exam Narrative: GENERAL: Well-appearing, well-nourished, and in no acute distress. HEAD: Normocephalic, atraumatic. EYES: PERRLA and EOMI. ENT: Nares clear, no rhinorrhea or epistaxis. Mucous membranes moist. Posterior pharyngeal erythema without exudate. Uvula is midline. Bilateral TMs pearly gordon nonbulging NECK: Supple. No adenopathy or masses. No carotid bruits or JVD CHEST: Clear to auscultation. No respiratory distress. No wheezes rales or rhonchi HEART: Regular rate and rhythm. No murmur heard. Normal peripheral pulses. ABDOMEN: Soft, nontender, nondistended, normal active bowel sounds. EXTREMITIES: Normal range of motion. No edema. SKIN: Warm, dry, no rash. NEURO: No focal deficits. Alert and oriented x3. PSYCH: Normal mood and affect. Course Course Emergency Course: This is a 23 old female who presented for evaluation of sore throat and cough. Strep was negative. Her son's strep test is positive. Through shared decision making we opted to proceed with abx therapy. Will dc with cephalexin. Increase hydration. [id number] agents for symptom management. Follow up with primary provider. Go to the ER for worsening symptoms. Patient in agreement with plan of care. Level of Care: Express Care Visit Vital Signs Vital signs: Vital Signs Temperature 36.9 C 08/06/23 18:54 Pulse Rate 79 08/06/23 18:54 Respiratory Rate 18 08/06/23 18:54 Blood Pressure 110/70 08/06/23 18:54 Pulse Oximetry 9
== END 2023-08-06 19:30 | disposition home or self-care (01) ==
PROVIDERS: Emergency Provider Nurse Practitioner
DX: J02.9 Acute pharyngitis, unspecified (principal); Z20.818 Contact with and (suspected) exposure to other bacterial communicable diseases; D64.9 Anemia, unspecified; F41.9 Anxiety disorder, unspecified; F32.A Depression, unspecified
CPT/HCPCS: 87081; 87880; 99213; G0463

== ENCOUNTER 2023-10-14 09:48 | Emergency (ER) | payer OTHER, SELFPAY ==
[2023-10-14 09:52] VITALS: BP 113/63; PULSE 96; RESP 20; TEMP 36.8; O2SAT 98
--- NOTE | 2023-10-14 10:14 | ED.URI ---
HPI - URI/Sore Throat General Chief Complaint: Upper Respiratory Infection Stated Complaint: cough/congestion Time Seen by Provider: 10/14/23 10:14 Source: patient, RN notes reviewed and old records reviewed Mode of arrival: ambulatory Limitations: no limitations History of Present Illness HPI Narrative: 23-year-old female presents to the [facility] with complaints of cough, congestion and a sore throat for 3 days. Reports children had COVID diagnosed by home attendant 1 week ago Related Data Home Medications Medication Instructions Recorded Confirmed ferrous sulfate 325 mg (65 mg 325 mg PO DAILY 07/23/22 08/06/23 iron) tablet (FeroSul) paroxetine HCl 20 mg tablet 20 mg PO DAILY 02/20/23 08/06/23 Allergies Allergy/AdvReac Type Severity Reaction Status Date / Time cinthia Allergy Mild Rash Verified 08/06/23 19:43 Penicillins Allergy Mild Rash Verified 08/06/23 19:43 Review of Systems Review of Systems: All systems reviewed & are unremarkable except as noted in HPI and below Constitutional: Constitutional: Reports no additional constitutional complaints Eyes: Eyes: Reports no additional eye complaints ENT: Reports as per HPI and Reports sore throat Cardiovascular: Cardiovascular: Reports no additional cardiovascular complaints, Denies chest pain and Denies dyspnea Respiratory: Respiratory: Reports no additional respiratory complaints, Denies chest congestion, Denies cough and Denies dyspnea Gastrointestinal: Gastrointestinal: Reports no additional gastrointestinal complaints, Denies abdominal pain, Denies nausea and Denies vomiting Musculoskeletal: Musculoskeletal: Reports no additional musculoskeletal complaints Integumentary/Breasts: Skin/Breast: Reports system reviewed and no additional complaints, except as docu Neurologic: Reports system reviewed and no additional complaints, except as documented Psychiatric: Psychiatric: Reports no additional psychiatric complaints Allergic/Immunologic: Allergic/Immunologic: Reports no additional allergic/immunologic complaints [facility] Past Medical History Medical History Anemia Anxiety and depression Bilateral ankle fractures Surgical History Surgical History No pertinent past surgical history Family History Family History Mother Family history non-contributory Social History Social History (Reviewed 10/14/23 @ 10:40 by CRISTOBAL Romero Smoking status: Never smoker Alcohol intake: never Additional living arrangements comments: Lives with fianc? and son Gender identity (if verbalized by the patient): Female Sexual Orientation (if Verbalized by the Patient): Straight or Heterosexual Spiritual care concerns: No Comments At the time of my signature, I reviewed and agree with the nursing past medical, surgical, social, and family history. There is no relevant family history pertinent to the patient complaint. Exam Const: General: cooperative, healthy appearing, comfortable, no acute distress, well developed, alert and well nourished Nutritional Appearance: well nourished Orientation/consciousness: patient oriented x3 Limitations: no limitations HENMT: Head: normal to inspection Ears: hearing grossly normal bilaterally, external ears normal, TM's normal bilaterally, EAC's normal, mastoids normal and no periauricular adenopathy Face/Nose/Sinus: Normal external nose present, Normal nares present, Normal nasal mucous membranes and turbinates present, normal facial exam and face symmetric Face and sinus: normal facial exam and face symmetric Mouth: Yes Normal oral and palatal mucosa present, Yes lip normal and Yes moist mucous membranes Throat: posterior oropharynx normal, tonsils normal, uvula midline, postnasal drainage and no uvular edema Eyes: General: appearance normal
== END 2023-10-14 10:48 | disposition home or self-care (01) ==
PROVIDERS: Emergency Provider Nurse Practitioner
DX: J06.9 Acute upper respiratory infection, unspecified (principal); R09.82 Postnasal drip; D64.9 Anemia, unspecified; F41.9 Anxiety disorder, unspecified; F32.A Depression, unspecified
CPT/HCPCS: 87081; 87880; 99213; G0463

== ENCOUNTER 2024-04-01 11:37 | Emergency (ER) | payer OTHER, SELFPAY ==
[2024-04-01 11:40] VITALS: BP 112/63; PULSE 81; RESP 18; TEMP 36.6; O2SAT 100
--- NOTE | 2024-04-01 12:23 | ED.SKABFB ---
HPI - Skin/Abscess/Foreign Bdy General Chief complaint: Skin/Abscess/Foreign Body Stated complaint: Skin Sore/Right Leg Time Seen by Provider: 04/01/24 12:23 Source: patient, RN notes reviewed and old records reviewed Mode of arrival: ambulatory Limitations: no limitations History of Present Illness HPI narrative: 23-year-old female to [facility] for complaint of a sore to her right upper inner thigh. Patient states that she 1st noticed it 4 days ago. Patient believes that it may be an insect bite or sting. Patient reports some itching and discomfort. Patient denies definitive known cause, fever, pertinent medical history, drainage from sore, myalgias, headache. Patient has not attempted to treat at home. Patient in no acute distress. Related Data Home Medications Medication Instructions Recorded Confirmed medroxyprogesterone 150 mg/mL See Rx Instructions .Route .COMPLEX 04/01/24 04/01/24 intramuscular syringe paroxetine HCl 30 mg tablet 30 mg PO DAILY 04/01/24 04/01/24 Allergies Allergy/AdvReac Type Severity Reaction Status Date / Time cinthia Allergy Mild Rash Verified 04/01/24 12:00 Penicillins Allergy Mild Rash Verified 04/01/24 12:00 Review of Systems Review of Systems: All systems reviewed & are unremarkable except as noted in HPI and below Constitutional: Constitutional: Reports as per HPI, Denies body ache(s), Denies chills, Denies fatigue and Denies fever(s) Eyes: Eyes: Reports no additional eye complaints ENT: Reports system reviewed and no additional complaints, except as documented Cardiovascular: Cardiovascular: Reports no additional cardiovascular complaints, Denies chest pain and Denies dyspnea Respiratory: Respiratory: Reports no additional respiratory complaints, Denies cough and Denies dyspnea Gastrointestinal: Gastrointestinal: Reports as per HPI and Denies nausea Musculoskeletal: Musculoskeletal: Reports no additional musculoskeletal complaints Integumentary/Breasts: Skin/Breast: Reports as per HPI, Reports swelling, Reports pruritus, Reports erythema and Reports other Comments: new lesion to right upper inner thigh for 4 days. Pt endorses discomfort, warm to touch, redness Neurologic: Reports system reviewed and no additional complaints, except as documented Psychiatric: Psychiatric: Reports no additional psychiatric complaints PMFSH Past Medical History Medical History Anemia Anxiety and depression Bilateral ankle fractures Surgical History Surgical History No pertinent past surgical history Family History Family History Mother Family history non-contributory Social History Social History Smoking status: Never smoker Alcohol intake: never Additional living arrangements comments: Lives with fianc? and son Gender identity (if verbalized by the patient): Female Sexual Orientation (if Verbalized by the Patient): Straight or Heterosexual Spiritual care concerns: No Comments At the time of my signature, I reviewed and agree with the nursing past medical, surgical, social, and family history. There is no relevant family history pertinent to the patient complaint. Exam Const: General: cooperative, healthy appearing, comfortable, no acute distress, alert and well nourished Nutritional Appearance: well nourished Orientation/consciousness: patient oriented x3 Limitations: no limitations HENMT: Head: normal to inspection Ears: external ears normal Face/Nose/Sinus: Normal external nose present, Normal nares present, normal facial exam, No erythema and No edema Face and sinus: normal facial exam, no erythema and no edema Mouth: Yes Normal oral and palatal mucosa present Eyes: General: appearance normal, both eyes a
== END 2024-04-01 12:40 | disposition home or self-care (01) ==
PROVIDERS: Emergency Provider Nurse Practitioner Family
DX: S70.361A Insect bite (nonvenomous), right thigh, initial encounter (principal); W57.XXXA Bitten or stung by nonvenomous insect and other nonvenomous arthropods, initial encounter; F41.9 Anxiety disorder, unspecified; F32.A Depression, unspecified
CPT/HCPCS: 99213; G0463

== ENCOUNTER 2024-04-29 10:40 | Emergency (ER) | payer OTHER, SELFPAY ==
[2024-04-29 10:56] VITALS: BP 121/85; PULSE 88; RESP 20; TEMP 36.5; O2SAT 98
--- NOTE | 2024-04-29 11:39 | ED.URI ---
HPI - URI/Sore Throat General Chief Complaint: Upper Respiratory Infection Stated Complaint: Sore Throat Time Seen by Provider: 04/29/24 11:39 History of Present Illness HPI Narrative: 23-year-old presented for complaint of sore throat for 3 days. Also endorses cough productive of white sputum. She has taken Robitussin. She denies shortness wheezing, nausea vomiting, fevers or chills. Children are sick with similar symptoms. Related Data Home Medications Medication Instructions Recorded Confirmed medroxyprogesterone 150 mg/mL See Rx Instructions .Route .COMPLEX 04/01/24 04/29/24 intramuscular syringe paroxetine HCl 30 mg tablet 30 mg PO DAILY 04/01/24 04/29/24 Allergies Allergy/AdvReac Type Severity Reaction Status Date / Time cinthia Allergy Mild Rash Verified 04/29/24 11:30 Penicillins Allergy Mild Rash Verified 04/29/24 11:30 Review of Systems Review of Systems: CONSTITUTIONAL: Denies body aches, fever, chills, or sweats. EYES: Denies visual changes, redness, or discharge. ENT: Reports sore throat Denies rhinorrhea, congestion, or otalgia. CARDIOVASCULAR: Denies chest pain, palpitations, or edema. RESPIRATORY: she reports cough Denies dyspnea. GASTROINTESTINAL: Denies abdominal pain, nausea, vomiting, or diarrhea. SKIN: Denies rash, itching, or wounds. MUSCULOSKELETAL: Denies back pain, joint pain, or myalgia. NEUROLOGIC: Denies headache PMFSH Past Medical History Medical History Anemia Anxiety and depression Bilateral ankle fractures Surgical History Surgical History No pertinent past surgical history Family History Family History Mother Family history non-contributory Social History Social History Smoking status: Never smoker Alcohol intake: never Additional living arrangements comments: Lives with fianc? and son Gender identity (if verbalized by the patient): Female Sexual Orientation (if Verbalized by the Patient): Straight or Heterosexual Spiritual care concerns: No Exam Narrative: GENERAL: well-appearing, no acute distress. EYES: conjunctivae clear ENT: Mucous membranes moist. TM pearly gordon with normal light reflex bilaterally; no tragal tenderness. Oropharynx mildly erythematous Tonsils not enlarged and without exudate. No drooling, no hoarseness, no trismus, uvula midline. No tripod positioning, hot potato voice, or soft palate swelling. NECK: Supple. No lymphadenopathy CHEST: Clear to auscultation, breath sounds equal. No respiratory distress, speaks in full sentences. HEART: Regular rate and rhythm. No murmur heard. SKIN: Warm, dry, no rash. NEURO: Alert and oriented x3. Course Course Emergency Course: Patient is aware of diagnosis, understands and agrees to treatment plan. Anticipatory guidance given. Patient agrees to follow-up as directed and is aware of reasons to seek care at the emergency department. Portions of this record may have been created with voice recognition software Level of Care: Express Care Visit Vital Signs Vital signs: Vital Signs Temperature 97.7 F 04/29/24 10:56 Pulse Rate 88 04/29/24 10:56 Respiratory Rate 20 04/29/24 10:56 Blood Pressure 121/85 04/29/24 10:56 Pulse Oximetry 98 04/29/24 10:56 Oxygen Delivery Room Air 04/29/24 10:56 Temperature 97.7 F 04/29/24 10:56 Pulse Rate 88 04/29/24 10:56 Respiratory Rate 20 04/29/24 10:56 Blood Pressure 121/85 04/29/24 10:56 Pulse Oximetry 98 04/29/24 10:56 Oxygen Delivery Room Air 04/29/24 10:56 MDM - URI/Sore Throat MDM Narrative Medical decision making narrative: Neg strep result reviewed with pt. Advise supportive treatments. Patient is appropriate for outpatient treatment and follow-up. Differ
[2024-04-29 11:58] LABS: EDSTREPNEGPOS1 Negative
== END 2024-04-29 11:55 | disposition home or self-care (01) ==
PROVIDERS: Emergency Provider Nurse Practitioner Family
DX: J06.9 Acute upper respiratory infection, unspecified (principal); F41.9 Anxiety disorder, unspecified; F32.A Depression, unspecified
CPT/HCPCS: 87081; 87880; 99213; G0463

== ENCOUNTER 2024-05-10 11:40 | Emergency (ER) | payer OTHER, SELFPAY ==
[2024-05-10 11:43] VITALS: BP 117/69; PULSE 81; RESP 16; TEMP 36.9; O2SAT 98
--- NOTE | 2024-05-10 12:10 | ED.URI ---
HPI - URI/Sore Throat General Chief Complaint: Upper Respiratory Infection Stated Complaint: Sinus Pressure Time Seen by Provider: 05/10/24 12:10 Source: patient Mode of arrival: ambulatory Limitations: no limitations History of Present Illness HPI Narrative: 24-year-old female presented for complaint of headache for 2 days. Pain is behind eyes. Worse when she bends forward. Denies any associated symptoms. Denies any relief with ibuprofen. Last dose was last night, 600 mg. Denies photophobia, vision change, nausea, vomiting, fevers or chills. Related Data Allergies Allergy/AdvReac Type Severity Reaction Status Date / Time cinthia Allergy Mild Rash Verified 04/29/24 11:30 Penicillins Allergy Mild Rash Verified 04/29/24 11:30 Review of Systems Review of Systems: CONSTITUTIONAL: Denies body aches, fever, chills, or sweats. EYES: Denies visual changes, redness, or discharge. ENT: Denies rhinorrhea, congestion, sore throat, or otalgia. CARDIOVASCULAR: Denies chest pain, palpitations, or edema. RESPIRATORY: Denies cough or dyspnea. GASTROINTESTINAL: Denies abdominal pain, nausea, vomiting, or diarrhea. SKIN: Denies rash, itching, or wounds. MUSCULOSKELETAL: Denies back pain, joint pain, or myalgia. NEUROLOGIC: Reports headache, denies numbness, tingling, or weakness. All systems reviewed & are unremarkable except as noted in HPI and below PMFSH Past Medical History Medical History Anemia Anxiety and depression Bilateral ankle fractures Surgical History Surgical History No pertinent past surgical history Family History Family History Mother Family history non-contributory Social History Social History Smoking status: Never smoker Alcohol intake: never Additional living arrangements comments: Lives with fianc? and son Gender identity (if verbalized by the patient): Female Sexual Orientation (if Verbalized by the Patient): Straight or Heterosexual Spiritual care concerns: No Comments At time of signature, I have reviewed and agree with nursing past medical, surgical, social and family history unless otherwise noted. Please see nursing chart for further information. There is no relevant family history pertinent to the presenting complaint Exam Narrative: GENERAL: Well-appearing, and in no acute distress. HEAD: Normocephalic, atraumatic. EYES: EOMI. No redness or drainage. Conjunctivae normal. ENT: Mucous membranes pink and moist. No rhinorrhea. TMs unable to visualize with excess cerumen bilaterally. Throat normal. Uvula midline. NECK: Normal AROM. Supple. No lymphadenopathy. CHEST: No respiratory distress. Clear to auscultation. HEART: Regular rate and rhythm. No murmur appreciated. Normal peripheral pulses. ABDOMEN: Soft, nontender, nondistended, normal active bowel sounds. SKIN: Warm, dry, no rash. Capillary refill normal. Normal skin turgor. NEURO: No focal deficits. Alert and oriented x3. Gait steady. PSYCH: Normal affect. Course Course Emergency Course: Patient is aware of diagnosis, understands and agrees to treatment plan. Anticipatory guidance given. Patient agrees to follow-up as directed and is aware of reasons to seek care at the emergency department. Portions of this record may have been created with voice recognition software Level of Care: Express Care Visit Vital Signs Vital signs: Vital Signs Temperature 98.5 F 05/10/24 11:43 Pulse Rate 81 05/10/24 11:43 Respiratory Rate 16 05/10/24 11:43 Blood Pressure 117/69 05/10/24 11:43 Pulse Oximetry 98 05/10/24 11:43 Oxygen Delivery Room Air 05/10/24 11:43 Temperature 98.5 F 05/10/24 11:43 Pulse Rate 81 05/10/24 11:43 Respiratory Rate 16 05/10/24 11:43 B
== END 2024-05-10 12:23 | disposition home or self-care (01) ==
PROVIDERS: Emergency Provider Nurse Practitioner Family
DX: R51.9 Headache, unspecified (principal)
CPT/HCPCS: 99213; G0463

== ENCOUNTER 2024-08-15 13:43 | Emergency (ER) | payer OTHER, SELFPAY ==
--- NOTE | 2024-08-15 14:21 | ED_ITS ---
HPI - Female Genitourinary General Chief complaint: Urogenital-Female Stated complaint: Abdominal Pain/Back Pain/Urinary Problem Time Seen by Provider: 08/15/24 14:20 Source: patient, RN notes reviewed and old records reviewed Mode of arrival: ambulatory Limitations: no limitations History of Present Illness HPI Narrative: 24 year old female who presents to [facility] care with complaints of low back pain that wraps around to abdomen, some frequency and burning with urination which started yesterday. Patient reports that she has not had any fever or chills or any incidence of nausea or vomiting. Patient reports no concern for exposure to STI's. Patient reports that she had urinary surgery in the past for dilatation of urinary tubes when younger due to frequent UTI's. Patient reports that MD elicited complaint: UTI Onset (ago): day(s) (day 2 of symptoms) Related Data Home Medications ?Medication ?Instructions ?Recorded ?Confirmed ?Last Taken ?Type medroxyprogesterone 150 mg/mL mg IM 08/15/24 Unknown History intramuscular suspension norgestimate 0.25 mg-ethinyl tablet 08/15/24 Unknown History estradiol 35 mcg tablet (Veronica) paroxetine HCl 30 mg tablet mg PO 08/15/24 Unknown History Allergies Allergy/AdvReac Type Severity Reaction Status Date / Time cinthia Allergy Mild Rash Verified 08/15/24 13:54 Penicillins Allergy Mild Rash Verified 08/15/24 13:54 Review of Systems Review of Systems: CONSTITUTIONAL: Denies fever, chills, or sweats. CARDIOVASCULAR: Denies chest pain, palpitations, or edema. RESPIRATORY: Denies cough or dyspnea. GASTROINTESTINAL: Denies abdominal pain, nausea, vomiting, or diarrhea. GENITOURINARY: Reports dysuria, frequency, urgency. Denies flank pain or hematuria. SKIN: Denies rash or itching. MUSCULOSKELETAL: Reports lower back pain or myalgia. Denies CVA tenderness NEUROLOGIC: Denies headache All systems reviewed & are unremarkable except as noted in HPI and below PMFSH Past Medical History Medical History (Updated 08/17/24 @ 18:38 by Cecilia Gaitan NP) Constipation Anemia Bilateral ankle fractures Anxiety and depression Surgical History Surgical History (Updated 08/17/24 @ 18:36 by Cecilia Gaitan NP) [place] teeth extracted History of urinary tract surgery dilation Family History Family History Mother Family history non-contributory Social History Social History Smoking status: Never smoker Alcohol intake: never Additional living arrangements comments: Lives with figrisel? and son Gender identity (if verbalized by the patient): Female Sexual Orientation (if Verbalized by the Patient): Straight or Heterosexual Spiritual care concerns: No Comments At time of signature, agree with nursing past medical, surgical, social and family history. There is no relevant family history pertinent to the presenting complaint Exam Narrative: GENERAL: Well-appearing, well-nourished, and in no acute distress. HEAD: Normocephalic, atraumatic. NECK: Supple. no lymphadenopathy CHEST: Clear to auscultation. No respiratory distress.SAO2 100% on room air HEART: Regular rate and rhythm. No murmur heard. Normal peripheral pulses. ABDOMEN: Soft, nontender, nondistended, normal active bowel sounds. No CVA tenderness reports low back pain with some radiation around to abdomen urinary frequency and burning EXTREMITIES: Normal range of motion. No edema. SKIN: Warm, dry, no rash. NEURO: No focal deficits. Alert and oriented x3. Course Course Emergency Course: Patient is aware of diagnosis, understands and agrees to treatment plan.? Anticipatory guidance given.? Patient agrees to follow-up as directed and is aware of reasons to seek care at the emergency department. Portions of this record may have been created with voice recognition software Level of Care: Express Care Visit Vital Signs Vital signs: Vital Signs Temperature 37.3 C 08/15/24 14:51 Pulse Rate 73 08/15/24 14:51 Respiratory Rate 15 08/15/24 14:51 Blood Pressure 111/66 08/15/24 14:51 Pulse Oximetry 100 08/15/24 14:51 Oxygen Delivery Room Air 08/15/24 14:51 Temperature 37.3 C 08/15/24 14:51 Pulse Rate 73 08/15/24 14:51 Respiratory Rate 15 08/15/24 14:51 Blood Pressure 111/66 08/15/24 14:51 Pulse Oximetry 100 08/15/24 14:51 Oxygen Delivery Room Air 08/15/24 14:51 reviewed MDM - Female Genitourinary MDM Narrative Medical decision making narrative: Exam findings and UA show no acute concerns or changes; patient is non-toxic appearing and is in no distress.? Patient is appropriate for outpatient treatment and follow-up. Differential Diagnosis Differential diagnosis: Likely urinary tract infection, cystitis and other (urinary tract symptoms) Medical Records Attestation: I reviewed the patient's medical records. Lab Data Attestation: I reviewed the patient's lab results. Lab results narrative: urine dip reviewed, urine culture sent Labs: Lab Results 08/15/24 Range/Units 15:00 POC Urine Color Yellow POC Urine Clarity Clear POC Urine pH 5.5 POC Ur Specif [place] 1.030 POC Urine Protein Negative (Negative) POC Ur Glucose (UA) Negative (Negative) POC Urine Ketones Negative (Negative) POC Urine Blood Negative (Negative) POC Urine Nitrite Negative (Negative) POC Urine Bilirubin Negative (Negative) POC Urine Urobilinogen 0.2 POC U Leukocyte Esteras Negative (Negative) Critical Care Time Critical Care Time Critical Care Time: No Discharge Plan Discharge Clinical Impression: UTI (urinary tract infection) Qualifiers: Urinary tract infection type: site unspecified Hematuria presence: without hematuria Qualified Code(s): N39.0 - Urinary tract infection, site not specified Patient Disposition: Home, Self-Care Condition: Stable Instructions: Antibiotic Form, Urinary Tract Infection in Women (DC) Additional Instructions: Increase fluids especially cranberry juice and water Avoid caffeine and carbonated beverages Antibiotic as directed Medicine as directed--cautioned it will cause your urine to be bright orange Tylenol/ibuprofen for pain or fever Follow-up with her primary care provider if further problems or concerns Recheck if you have fever over 101, nausea and vomiting. Patient Language: Australian Prescriptions: New nitrofurantoin monohyd/m-cryst [Macrobid] 100 mg capsule 100 mg PO Q12H 7 Days Qty: 14 0RF Rx Instructions: must administer with a meal/food No Action norgestimate-ethinyl estradiol [Veronica] 0.25-35 mg-mcg tablet paroxetine HCl 30 mg tablet PO medroxyprogesterone 150 mg/mL suspension IM ibuprofen 800 mg tablet 800 mg PO TID PRN (Reason: pain) Qty: 15 0RF Follow-up/Referrals: PHYSICIAN,HOUSING MANAGER [Primary Care Provider] - Time of Disposition: 14:56 Quality [place] Coma Scale Eyes: Open Verbal: Oriented and Alert Motor: Follows Commands [place] Coma Total Score: 15
[2024-08-15 14:51] VITALS: BP 111/66; PULSE 73; RESP 15; TEMP 37.3; O2SAT 100
[2024-08-15 15:17] LABS: EDUAAPPEAR Clear; EDUABILI Negative (Negative); EDUABLOOD Negative (Negative); EDUACOLOR1 Yellow; EDUAGLUCOSE Negative (Negative); EDUAKETONE Negative (Negative); EDUALEUKO Negative (Negative); EDUANITRATE Negative (Negative); EDUAPH 5.5; EDUAPROTEIN Negative (Negative); EDUAUROBILI 0.2
== END 2024-08-15 15:00 | disposition home or self-care (01) ==
PROVIDERS: Emergency Provider Registered Nurse
DX: N39.0 Urinary tract infection, site not specified (principal); F41.9 Anxiety disorder, unspecified; F32.A Depression, unspecified
CPT/HCPCS: 81003; 87086; 99213; G0463

== ENCOUNTER 2024-10-15 12:08 | Emergency (ER) | payer OTHER, SELFPAY ==
--- NOTE | 2024-10-15 12:08 | ED_ITS ---
HPI - URI/Sore Throat General Chief Complaint: Upper Respiratory Infection Stated Complaint: Sore Throat Time Seen by Provider: 10/15/24 12:32 Source: patient and RN notes reviewed Mode of arrival: ambulatory Limitations: no limitations History of Present Illness HPI Narrative: 24-year-old female presents with concern for sore throat, cough, body aches for 1 day. Reports exposure to strep. Reports she is taking Mucinex with relief of her cough. MD elicited complaint: cough and sore throat Related Data Home Medications ?Medication ?Instructions ?Recorded ?Confirmed ?Last Taken ?Type medroxyprogesterone 150 mg/mL mg IM 08/15/24 Unknown History intramuscular suspension norgestimate 0.25 mg-ethinyl tablet 08/15/24 Unknown History estradiol 35 mcg tablet (Veronica) paroxetine HCl 30 mg tablet mg PO 08/15/24 Unknown History Allergies Allergy/AdvReac Type Severity Reaction Status Date / Time cinthia Allergy Mild Rash Verified 08/15/24 13:54 Penicillins Allergy Mild Rash Verified 08/15/24 13:54 Review of Systems Review of Systems: CONSTITUTIONAL: Reports malaise. Denies chills, sweats, or fever. EYES: Denies visual changes, redness, or discharge. ENT: Denies rhinorrhea, congestion, sinus pain, otalgia. Reports sore throat. CARDIOVASCULAR: Denies chest pain, palpitations, or edema. RESPIRATORY: Reports cough. Denies dyspnea. GASTROINTESTINAL: Denies abdominal pain, nausea, vomiting, diarrhea SKIN: Denies rash or itching. MUSCULOSKELETAL: Reports myalgia. NEUROLOGIC: Denies headache. All systems reviewed & are unremarkable except as noted in HPI and below PMFSH Past Medical History Medical History (Updated 10/15/24 @ 12:41 by Shelby Patterson NP) Constipation Anemia Bilateral ankle fractures Anxiety and depression Surgical History Surgical History (Updated 08/17/24 @ 18:36 by Cecilia Gaitan NP) [place] teeth extracted History of urinary tract surgery dilation Family History Family History Mother Family history non-contributory Social History Social History Smoking status: Never smoker Alcohol intake: never Additional living arrangements comments: Lives with fianc? and son Gender identity (if verbalized by the patient): Female Sexual Orientation (if Verbalized by the Patient): Straight or Heterosexual Spiritual care concerns: No Comments At time of signature, agree with nursing past medical, surgical, social and family history. There is no relevant family history pertinent to the presenting complaint Exam 2 Narrative: GENERAL: Nontoxic-appearing, well-nourished, and in no acute distress. HEAD: Normocephalic EYES: PERRLA, conjunctivae clear ENT: Nares clear. Mucous membranes moist. TM pearly gordon with sharp light reflex bilaterally; no tragal tenderness. Oropharynx not erythematous without lesions. Tonsils not enlarged and without exudate, no drooling, no hoarseness, no trismus, uvula midline. NECK: Supple. No lymphadenopathy CHEST: Clear to auscultation, breath sounds equal. No wheezing, rhonchi, rales, or stridor. No respiratory distress, speaks in full sentences. HEART: Regular rate and rhythm. No murmur heard. SKIN: Warm, dry, no rash. NEURO: Alert and oriented x3. PSYCH: Normal mood and affect Course Course Emergency Course: Patient is aware of diagnosis, understands and agrees to treatment plan. Anticipatory guidance given. Patient agrees to follow-up as directed and is aware of reasons to seek care at the emergency department. Portions of this record may have been created with voice recognition software Level of Care: Express Care Visit Vital Signs Vital signs: Reviewed. MDM - URI/Sore Throat MDM Narrative Medical decision making narrative: Differential diagnosis considered: [place] virus, strep pharyngitis, allergic rhinitis, upper respiratory tract infection, sinusitis, rhinosinusitis, nasopharyngitis. viral pharyngitis, otitis media, otitis externa, pneumonia, bronchitis, viral cough syndrome, viral syndrome, and influenza. Exam findings show no acute concerns or changes; patient is non-toxic appearing and is in no distress. Patient is appropriate for outpatient treatment and follow-up. Lab Data Attestation: I reviewed the patient's lab results. Critical Care Time Critical Care Time Critical Care Time: No Discharge Plan Discharge Clinical Impression: Upper respiratory infection Patient Disposition: Home, Self-Care Condition: Stable Instructions: Upper Respiratory Infection (ED) Additional Instructions: Viral illness may last between 7-21 days; antibiotics do not cure viral illness and are NOT recommended at this time. Recommend antihistamine such as Benadryl at night time and Zyrtec or Tiffany during the day Also, recommend symptomatic treatment includes: rest, fluids, and increase humidity of the air at home. Recommend Acetaminophen as directed on the bottle to reduce fever, pain, headache. Avoid smoking/second-hand smoke. Please schedule a follow-up visit with your personal physician for further evaluation and treatment within 3-5days. If your symptoms persist, change or worsen significantly before you can contact your personal physician then please, without delay, go to the emergency department for further evaluation. Patient Language: Burmese Prescriptions: No Action norgestimate-ethinyl estradiol [Veronica] 0.25-35 mg-mcg tablet paroxetine HCl 30 mg tablet PO medroxyprogesterone 150 mg/mL suspension IM ibuprofen 800 mg tablet 800 mg PO TID PRN (Reason: pain) Qty: 15 0RF Follow-up/Referrals: UNKNOWN,DOCTOR [Non-Staff] - Time of Disposition: 12:42
[2024-10-15 12:12] VITALS: BP 119/75; PULSE 107; RESP 18; TEMP 36.4; O2SAT 99
[2024-10-15 12:30] LABS: EDSTREPNEGPOS1 Negative (Negative)
--- OUTSIDE RECORDS SUMMARY | 2024-10-15 13:11 | XMS_ITS | Referral Summary ---
Author Organization [facility] [address] Address [address] [place] [address] Care Team Providers Care Heart Nurse Name Role Phone Armand Thornton MD Primary Care Provider [phone] Chace Saeed MD Unavailable + [phone] Encounters Date Type Department Care Team Description 08/23/2024 8:53 AM HEATER HELPER FORGE - 08/23/2024 11:59 PM HEATER HELPER FORGE Hospital Encounter [facility] [address] [place] [address] Pelvic and perineal pain Discharge Disposition: Discharge to home or self care from Last 3 Months Allergies Active Allergy Reactions Criticality Noted Date Comments Latex Rash Medium 09/27/2022 Ab Rash Medium 02/27/2019 Penicillins Nausea only,Rash Medium 06/04/2016 Medications prenat vit 85-saft-qeuag-o m3,6 35-5-1.2-400 mg capsule Take 1 tablet by mouth daily Active ferrous sulfate 325 mg (65 mg of elemental iron) tablet Take 1 tablet by mouth 2 (two) times a day Active polyethylene glycol (MIRALAX) 17 gram/dose powder Take 17 g by mouth daily Active docusate sodium (COLACE) 100 mg capsuleIndicati ons:constipatio n,Stool Softener Take 1 capsule (100 mg total) by mouth 2 (two) times a day 30 capsule 1 10/07/2022 Active ibuprofen (ADVIL,MOTRIN) 600 mg tabletIndicatio ns:Cramps Take 1 tablet (600 mg total) by mouth every 6 (six) hours as needed for pain 30 tablet 1 10/07/2022 Active Active Problems Problem Noted Date Diagnosed Date with 39 completed weeks gestation 09/2022 Social History Tobacco Use Types Packs/Day Years Used Date Smoking Tobacco: Never Smokeless Tobacco: Never Alcohol Use Standard Drinks/Week Comments Not Currently 0 (1 standard drink = 0.6 oz pur e alcohol) Social Connection and Isolat ion Panel [NHANES] Answer Date Recorded In a typical week, how many times do you talk on the phone with family, friends, or neighbors? More than three times a week 10/05/2022 How often do you get togethe r with friends or relatives? More than three times a week 10/05/2022 How often do you attend chur or advent services? More than 4 times per year 10/05/2022 Do you belong to any clubs o r organizations such as latter-day groups, unions, fraternal or athletic groups, or school groups? Yes 10/05/2022 How often do you attend meet ings of the clubs or organizations you belong to? 1 to 4 times per year 10/05/2022 Are you , , di vorced, , never , or living with a partner? Living with partner 10/05/2022 AUDIT-C Answer Date Recorded Q1: How often do you have a drink containing alcohol? Never 10/05/2022 Q2: How many drinks containi ng alcohol do you have on a typical day when you are drinking? Patient does not drink Q3: How often do you have si x or more drinks on one occasion? Never 10/05/2022 Overall Financial Resource Strain (CARDIA) Answe r Date Recorded How hard is it for you to pa y for the very basics like food, housing, medical care, and heating? Not hard at all 10/05/2022 PHQ-2 Answer Date Recorded PHQ-2 Total Score (If total score is 3 or more points, staff should administer the PHQ-9) 0 10/05/2022 [facility] Occupat ional [facility] - Occupational Stress Questionnaire Answer Date Recorded Do you feel stress - tense, restless, nervous, or anxious, or unable to sleep at night because your mind is troubled all the time - these days? Not at all 10/05/2022 Exercise Vital Sign Answer Date Recorde d On average, how many days pe r week do you engage in moderate to strenuous exercise (like a brisk walk)? 0 days Minutes of Exercise per Session Not on file 10/05/2022 Hunger Vital Sign Answer Date Recorded Within the past 12 months, y ou worried that your food would run out before you got the money to buy more. Never true 10/05/19 23 Within the past 12 months, t he food you bought just didn't last and you didn't have money to get more. Never true 10/05/2022 PRAPARE - Transportation Answer Date Re corded In the past 12 months, has l ack of transportation kept you from medical appointments or from getting medications? No 09/2022 In the past 12 months, has l ack of transportation kept you from meetings, work, or from getting things needed for daily living? No 10/05/2022 Housing Stability Vital Sign Answer Quinton e Recorded In the last 12 months, was t here a time when you were not able to pay the mortgage or rent on time? No 10/05/2022 In the last 12 months, how many places have you lived? 1 10/05/2022 In the last 12 months, was t here a time when you did not have a steady place to sleep or slept in a snf (including now)? No 10/05/2022 Personal Safety Answer Date Recorded Getting School Help Needed Denies 08/19 Comments No Sex and Gender Information Value Date Recorded Sex Assigned at Not on file Legal Sex Female 11:29 PM HEATER HELPER FORGE Gender Identity Not on file Sexual Orientation Not on file Last Filed Vital Signs Vital Sign Reading Time Taken Comments Blood Pressure 108/69 10/07/2022 7:00 AM HEATER HELPER FORGE Pulse 81 10/07/2022 7:00 AM HEATER HELPER FORGE Temperature 36.8 C (98.3 F) 10/07/2022 7:00 AM HEATER HELPER FORGE Respiratory Rate 18 10/06/2022 11:36 PM HEATER HELPER FORGE Oxygen Saturation 91% 10/05/2022 1:20 PM HEATER HELPER FORGE Inhaled Oxygen Concentration - - Weight 75.3 kg (166 lb) 10/05/2022 6:30 AM HEATER HELPER FORGE Height 170.2 cm (5' 7 ) 10/05/2022 6:30 AM HEATER HELPER FORGE Body Mass Index 26 10/05/2022 6:30 AM HEATER HELPER FORGE Plan of Treatment Not on file Procedures Procedure Name Priority Date/Time Associated Diagnosis Comments US PELVIS W ENDOVAGINAL Schedule Routine, Read Routine (OP Routine) 08/23/2024 10:00 AM HEATER HELPER FORGE Pelvic and perineal pain from Last 3 Months Results * US Pelvis W Endovaginal (08/23/2024 10:00 AM HEATER HELPER FORGE) Anatomical Region Laterality Modality Pelvis N/A Ultrasound 08/31/2024 3:36 PM HEATER HELPER FORGE Narrative 08/31/2024 3:40 PM HEATER HELPER FORGE EXAM DESCRIPTION: US PELVIS W ENDOVAGINAL REASON FOR STUDY: Pelvic pain for 2 years TECHNIQUE: Grayscale ultrasound of the pelvic contents was performed with transabdominal and transvaginal transducer. COMPARISON: None available FINDINGS: UTERUS: The uterus is retroverted. The uterus is homogenous in echotexture and measures 7.2 x 3.4 x 5.4 cm. ENDOMETRIUM: The endometrium measures 0.4 cm in thickness. RIGHT OVARY: The right ovary measures 2.7 x 1.7 x 1.7 cm. There is documentation of color Doppler flow in the right ovary. The right ovary appears unremarkable. LEFT OVARY: The left ovary measures 3.0 x 2.3 x 1.9 cm. There is documentation of color Doppler flow in the left ovary. The left ovary appears unremarkable follicles. PELVIC FLUID: There is no evidence of free fluid in the pelvis. OTHER: No other significant findings. IMPRESSION: Unremarkable pelvic ultrasound. THIS IS AN ELECTRONICALLY VERIFIED FINAL REPORT 08/31/2024 3:40 PM - Electronically signed by Leonides Velazco M.D. RW: LIONEL Report ID: [id number] Reading Location: [id number] Procedure Note Leonides Velazco MD - 08/31/2024 EXAM DESCRIPTION: US PELVIS W ENDOVAGINAL REASON FOR STUDY: Pelvic pain for 2 years TECHNIQUE: Grayscale ultrasound of the pelvic contents was performed with transabdominal and transvaginal transducer. COMPARISON: None available FINDINGS: UTERUS: The uterus is retroverted. The uterus is homogenous in echotexture and measures 7.2 x 3.4 x 5.4 cm. ENDOMETRIUM: The endometrium measures 0.4 cm in thickness. RIGHT OVARY: The right ovary measures 2.7 x 1.7 x 1.7 cm. There is documentation of color Doppler flow in the right ovary. The right ovary appears unremarkable. LEFT OVARY: The left ovary measures 3.0 x 2.3 x 1.9 cm. There is documentation of color Doppler flow in the left ovary. The left ovaryappears unremarkable follicles. PELVIC FLUID: There is no evidence of free fluid in the pelvis. OTHER: No other significant findings. IMPRESSION: Unremarkable pelvic ultrasound. THIS IS AN ELECTRONICALLY VERIFIED FINAL REPORT 08/31/2024 3:40 PM - Electronically signed by Leonides Velazco M.D. RW: LIONEL Report ID: [id number] Reading Location: [place] [address] [place] Chace Saeed MD IMG US PROCEDURES Misty l Result from Last 3 Months Insurance [employer] CHO[employer] MEDICARE PPO Advance Directives For more information, please contact: [phone] * Full Code (Latest Code Status on File) Date Activated Date Inactivated Comments 10/05/2022 3:46 PM 10/07/2022 8:22 PM * Full Code Date Activated Date Inactivated Comments 10/05/2022 6:43 AM 10/05/2022 3:46 PM Full CPR in ca se of cardiopulmonary arrest Care Teams Heart Nurse Relationship Specialty Start Date End Date Armand Thornton MD [address] [place] [address] PCP - General Family Medicine 01/21/22 Chace Saeed MD [address] [place] [address] Personalized Living Manager Nurse Obstetrics and Gynecology 10/07/22
--- OUTSIDE RECORDS SUMMARY | 2024-10-15 13:11 | XMS_ITS | Referral Summary ---
Author Organization [facility] Address [address] [place] [address] Care Team Providers Care World Travel Counselor Name Role Phone Unavailable Primary Care Provider Unavailabl e Source Comments [facility],non-owned Affiliates and Associated Physician Practices is amultiple site organization consisting of ambulatory clinics and hospital sitesin [place], [place], [place] and [place]. This disclosure is being madepursuant to the Care Everywhere program and may not contain all information available regarding this patient. Last updated 18.[facility] [employer] Allergies Active Allergy Reactions Criticality Noted Date Comments [place] Flavor Rash Medium 07/10/2019 Penicillins Rash,Dizziness Medium 07/10/2019 Medications * Be aware that medications may not be up to date on this document. Alwaysverify current medications with the patient. Medication Sig Dispensed Refills Start Date End Date Status ibuprofen (MOTRIN) 600 MG tabletIndications:P ostpartum state (HCC) Take 1 tablet by mouth every 6 hours as needed for Pain 40 tablet 1 07/13/2019 Active docusate sodium (COLACE) 100 MG capsuleIndications: state (HCC) Take 1 capsule by mouth 2 times daily 60 capsule 1 07/13/2019 Active ferrous sulfate 325 (65 FE) MG tabletIndications:I adis Deficiency Take 1 tablet by mouth once daily Reasons: Iron Deficiency 100 tablet 07/13/2019 Active Active Problems Problem Noted Date Diagnosed Date Decreased movement affecting , an tepartum 07/10/2019 Resolved Problems Problem Noted Date Diagnosed Date Resolved Date affected by growth restriction 07/11/2019 07/13/2019 Immunizations Name Administration Dates Next Due INFLUENZA VACCINE, QUADR. (F LUZONE; FLULAVAL; FLUARIX; AFLURIA QUADRIVALENT; 6MO+), 0.5 ML (IIV4) 07/13/2019 MMR 07/12/2019(Deferred: - Immune) Rho D Immune Globulin 07/13/2019 TDAP (7yrs+) 07/12/2019(Deferred: See Comments - Already recieved this ),06/18/2019 Social History Tobacco Use Types Packs/Day Years Used Date Smoking Tobacco: Never Smokeless Tobacco: Never Alcohol Use Standard Drinks/Week Comments Not Currently 0 (1 standard drink = 0.6 oz pur e alcohol) Sex and Gender Information Value Date Recorded Sex Assigned at Not on file Gender Identity Not on file Sexual Orientation Not on file Last Filed Vital Signs Vital Sign Reading Time Taken Comments Blood Pressure 122/77 07/13/2019 9:35 AM PICK UP ATTENDANT Pulse 97 07/13/2019 9:35 AM PICK UP ATTENDANT Temperature 37.1 C (98.7 F) 07/13/2019 9:35 AM PICK UP ATTENDANT Respiratory Rate 18 07/13/2019 9:35 AM PICK UP ATTENDANT Oxygen Saturation 100% 07/13/2019 9:35 AM PICK UP ATTENDANT Inhaled Oxygen Concentration - - Weight 71.2 kg (157 lb) 07/10/2019 4:46 PM PICK UP ATTENDANT Height 170.2 cm (5' 7 ) 07/10/2019 4:46 PM PICK UP ATTENDANT Body Mass Index 24.59 07/10/2019 4:46 PM PICK UP ATTENDANT Functional Status Functional Status Response Date of Assess ment Is person deaf or have serious hearing difficult y? No 07/10/2019 Is person blind or have serious difficulty seein g? No 07/10/2019 Does person have serious dif ficulty walking/climbing stairs? No 07/10/2019 Does person have difficulty dressing/bathing? No 07/10/2019 Does person have difficulty doing errands alone? No 07/10/2019 Cognitive Status Response Date of Assessm ent Does person have difficulty concentrating/remembering/making decisions? No 07/10/2019 Plan of Treatment Not on file Advance Directives * Full Code (Latest Code Status on File) Date Activated Date Inactivated Comments 07/10/2019 5:22 PM 07/13/2019 8:19 PM
--- OUTSIDE RECORDS SUMMARY | 2024-10-15 13:11 | XMS_ITS | Patient Health Summary ---
Author Organization [facility] Address [address] [place] [address] Care Team Providers Care Senior Software Manager Name Role Phone Unavailable Primary Care Provider Unavailabl e Note from [facility],non-owned Affiliates and Associated Physician Practices is amultiple site organization consisting of ambulatory clinics and hospital sitesin [place], [place], [place] and [place]. This disclosure is being madepursuant to the Care Everywhere program and may not contain all information available regarding this patient. Last updated 18.[facility] hyaqu Allergies * Ab Flavor(Rash) -Medium Criticality * Penicillins(Rash,Dizziness) -Medium Criticality Medications * Be aware that medications may not be up to date on this document. Alwaysverify current medications with the patient. * ibuprofen (MOTRIN) 600 MG tablet(Started 07/13/2019) Take 1 tablet by mouth every 6 hours as needed for Pain 1 refill remaining * docusate sodium (COLACE) 100 MG capsule(Started 07/13/2019) Take 1 capsule by mouth 2 times daily 1 refill remaining * ferrous sulfate 325 (65 FE) MG tablet(Started 07/13/2019) Take 1 tablet by mouth once daily Reasons: Iron Deficiency Active Problems Problem Noted Date Diagnosed Date Decreased movement affecting , an tepartum 07/10/2019 Resolved Problems Problem Noted Date Diagnosed Date Resolved Date affected by growth restriction 07/11/2019 07/13/2019 Immunizations * INFLUENZA VACCINE, QUADR. (FLUZONE; FLULAVAL; FLUARIX; AFLURIA QUADRIVALENT; 6MO+), 0.5 ML (IIV4)(Given 07/13/2019) * Rho D Immune Globulin(Given 07/13/2019) * TDAP (7yrs+)(Given 06/18/2019) Social History Tobacco Use Types Packs/Day Years [...] Comments Blood Pressure 122/77 07/13/2019 9:35 AM FACILITY ADMINISTRATOR Pulse 97 07/13/2019 9:35 AM FACILITY ADMINISTRATOR Temperature 37.1 C (98.7 F) 07/13/2019 9:35 AM FACILITY ADMINISTRATOR Respiratory Rate 18 07/13/2019 9:35 AM FACILITY ADMINISTRATOR Oxygen Saturation 100% 07/13/2019 9:35 AM FACILITY ADMINISTRATOR Inhaled Oxygen Concentration - - Weight 71.2 kg (157 lb) 07/10/2019 4:46 PM FACILITY ADMINISTRATOR Height 170.2 cm (5' 7 ) 07/10/2019 4:46 PM FACILITY ADMINISTRATOR Body Mass Index 24.59 07/10/2019 4:46 PM FACILITY ADMINISTRATOR Procedures * IMAGING/RADIOLOGY/XRAY RESULTS ORDER(Performed 07/15/2019) * URINE MICROSCOPIC ONLY REFLEX TO CULTURE(Performed 07/13/2019) Performed for state (HCC) * URINALYSIS REFLEX MICROSCOPIC REFLEX CULTURE(Performed 07/13/2019) Performed for state (HCC) * CULTURE URINE(Performed 07/13/2019) Performed for state (HCC) * RH IMMUNE GLOBULIN WORKUP PANEL(Performed 07/12/2019) * CBC W AUTO DIFFERENTIAL(Performed 07/12/2019) * BLOOD GASES CORD STEFFANIE (ISTAT)(Performed 07/11/2019) * BLOOD GASES CORD ART (ISTAT)(Performed 07/11/2019) * NEURAXIAL BLOCK(Performed 07/11/2019) * BLOOD TYPE VERIFICATION(Performed 07/10/2019) * TYPE + SCREEN PANEL(Performed 07/10/2019) * CBC W AUTO DIFFERENTIAL(Performed 07/10/2019) * SONOGRAM - COMPLETE(Performed 07/10/2019) Results * IMAGING RADIOLOGY XRAY RESULTS ORDER (07/15/2019 3:43 PM FACILITY ADMINISTRATOR) Anatomical Region Laterality Modality Other Narrative 07/15/2019 3:43 PM FACILITY ADMINISTRATOR Ordered by an unspecified provider. Scanned Document IMAGING * (ABNORMAL) URINE MICROSCOPIC ONLY REFLEX TO CULTURE (07/13/2019 1:40 PM FACILITY ADMINISTRATOR) Reflex Status Culture to follow 07/13/2019 2:14 PM [facility] RBC UA 11-20(A) None Seen, 0-2, 3-5 # /hpf 07/13/2019 2:14 PM [facility] WBC UA 21-50(A) None Seen, 0-5 # /hpf 07/13/2019 2:14 PM FACILITY ADMINISTRATOR [facility] Bacteria UA None Seen None Seen 07/13/2019 2:14 PM [facility] Squamous Epithelial Cells 0-2 None Seen, 0-2, 3-5 /hpf 07/13/2019 2:14 PM [facility] Mucus UA 1+ /LPF 07/13/2019 2:14 PM [facility] Urine URINE SPECIMEN OBTAINED BY CLEAN CATCH PROCEDURE / Unknown Collection / Unknown 07/13/2019 1:40 PM FACILITY ADMINISTRATOR 07/13/2019 1:51 PM FACILITY ADMINISTRATOR Narrative [facility] - 07/13/2019 2:14 PM FACILITY ADMINISTRATOR Betsy Alfaro MD LAB - URINALYSIS ORD ERABLES [facility] [address], [place] [id number] * (ABNORMAL) URINALYSIS REFLEX MICROSCOPIC REFLEX CULTURE (07/13/2019 1:40 PM FACILITY ADMINISTRATOR) Color UA Yellow Straw, Yellow 07/13/2019 2:08 PM [facility] Clarity UA Clear Clear 07/13/2019 2:08 PM [facility] Glucose UA Negative Negative 07/13/2019 2:08 PM [facility] Bilirubin UA Negative Negative 07/13/2019 2:08 PM [facility] Ketone UA Negative Negative 07/13/2019 2:08 PM [facility] Specific Eldred UA 1.009 1.005 - 1.030 07/13/2019 2:08 PM [facility] Blood UA 3+(A) Negative 07/13/2019 2:08 PM [facility] pH UA 7.0 5.0 - 8.0 pH 07/13/2019 2:08 PM [facility] Protein UA Negative Negative 07/13/2019 2:08 PM FACILITY ADMINISTRATOR [facility] Urobilinogen UA Negative Negative mg/dL 07/13/2019 2:08 PM FACILITY ADMINISTRATOR [facility] Nitrite UA Negative Negative 07/13/2019 2:08 PM FACILITY ADMINISTRATOR [facility] Leukocyte UA 2+(A) Negative 07/13/2019 2:08 PM FACILITY ADMINISTRATOR [facility] Urine Microscopy Urine microscopy to follow 07/13/2019 2:08 PM FACILITY ADMINISTRATOR [facility] Reflex Status Culture to follow 07/13/2019 2:08 PM FACILITY ADMINISTRATOR [facility] Urine URINE SPECIMEN OBTAINED BY CLEAN CATCH PROCEDURE / Unknown Collection / Unknown 07/13/2019 1:40 PM FACILITY ADMINISTRATOR 07/13/2019 1:51 PM FACILITY ADMINISTRATOR Narrative [facility] - 07/13/2019 2:08 PM FACILITY ADMINISTRATOR Betsy Alfaro MD LAB - URINALYSIS ORD ERABLES [facility] [address] [place] [address] * CULTURE URINE (07/13/2019 1:40 PM FACILITY ADMINISTRATOR) Pathologist [facility] Culture Urine <10,000 CFU/mL urogenital hazel JAMIR 07/15/2019 5:32 AM FACILITY ADMINISTRATOR [facility] Urine URINE SPECIMEN OBTAINED BY CLEAN CATCH PROCEDURE / Unknown Collection / Unknown 07/13/2019 1:40 PM FACILITY ADMINISTRATOR 07/13/2019 1:51 PM FACILITY ADMINISTRATOR Betsy Alfaro MD LAB - MICROBIOLOGY O RDERABLES Performing Organization Address City/[facility]/ZIP Co de Phone Number [facility] [address] [place], [place] [address] [phone] * RH IMMUNE GLOBULIN WORKUP PANEL (07/12/2019 8:53 AM FACILITY ADMINISTRATOR) # Rhlg vials needed RHG Candidate, Screen Negative 07/12/2019 10:28 AM FACILITY ADMINISTRATOR [facility] Blood Bank BLOOD SPECIMEN / Unknown Lab Venipuncture / Unknown 07/12/2019 8:53 AM FACILITY ADMINISTRATOR 07/12/2019 9:14 AM FACILITY ADMINISTRATOR Bonnie Pulido MD LAB - BLOOD BANK OR DERABLES [facility] [address] [place] [address], [facility] [phone] * (ABNORMAL) CBC W AUTO DIFFERENTIAL (07/12/2019 8:53 AM FACILITY ADMINISTRATOR) Only the most recent of2 resultswithin the time period is included. WBC 11.7(H) 4.4 - 10.7 x10E9/L 07/12/2019 9:30 AM [facility] WBC Corrected 07/12/2019 9:30 AM [facility] RBC 3.07(L) 3.80 - 5.20 x10E12/L 07/12/2019 9:30 AM [facility] Hemoglobin 9.6(L) 12.0 - 15.6 gm/dL 07/12/2019 9:30 AM [facility] Hematocrit 30.0(L) 35.9 - 45.5 % 07/12/2019 9:30 AM [facility] MCV 97.7 80.7 - 98.3 fl 07/12/2019 9:30 AM [facility] MCH 31.3 26.7 - 34.0 pg 07/12/2019 9:30 AM [facility] MCHC 32.0 30.8 - 35.9 gm/dL 07/12/2019 9:30 AM [facility] Platelet Count 220 153 - 416 x10E9/L 07/12/2019 9:30 AM [facility] RDW-CV 13.1 12.1 - 14.9 % 07/12/2019 9:30 AM [facility] MPV 9.9 9.4 - 12.9 fl 07/12/2019 9:30 AM [facility] Neutrophils % 79.2(H) 44.0 - 73.0 % 07/12/2019 9:30 AM [facility] Lymphocytes % 13.6(L) 20.0 - 43.0 % 07/12/2019 9:30 AM [facility] Monocytes % 6.3 5.0 - 13.0 % 07/12/2019 9:30 AM [facility] Eosinophils % 0.3 0.0 - 6.0 % 07/12/2019 9:30 AM [facility] Basophils % 0.2 0.0 - 2.0 % 07/12/2019 9:30 AM [facility] Immature Granulocytes 0.4 0 - 1 % 07/12/2019 9:30 AM [facility] Neutrophil Absolute 9.25(H) 2.01 - 7.14 x10E9/L 07/12/2019 9:30 AM [facility] Lymphocytes Absolute 1.59 1.07 - 3.94 x10E9/L 07/12/2019 9:30 AM [facility] Monocytes Absolute 0.74 0.26 - 1.07 x10E9/L 07/12/2019 9:30 AM [facility] Eosinophils Absolute 0.04 0 - 0.47 x10E9/L 07/12/2019 9:30 AM [facility] Basophils Absolute 0.02 0 - 0.08 x10E9/L 07/12/2019 9:30 AM [facility] Immature Granulocytes Absolute 0.05 0.00 - 0.06 x10E9/L 07/12/2019 9:30 AM [facility] nRBC Auto 0 /100 WBC 07/12/2019 9:30 AM [facility] Blood BLOOD SPECIMEN / Unknown Lab Venipuncture / Unknown 07/12/2019 8:53 AM FACILITY ADMINISTRATOR 07/12/2019 9:14 AM [facility] Tori Lozano MD LAB - HEMATOLOGY ORD ERABLES [facility] [address] [place] [address] * (ABNORMAL) BLOOD GASES CORD STEFFANIE (ISTAT) (07/11/2019 3:25 PM [facility]) pH Cord Venous POCT 7.31 7.28 - 7.40 pH 07/11/2019 3:31 PM [facility] pCO2 Cord Venous POCT 40 35 - 45 mm hg 07/11/2019 3:31 PM [facility] pO2 Cord Venous POCT 27 22 - 33 mm hg 07/11/2019 3:31 PM [facility] HCO3 Cord Arterial POCT 19.7(L) 22 - 24 mmol/L 07/11/2019 3:31 PM [facility] BE Cord Venous POCT Calc -6 -6.4 - 1.6 mmol/L 07/11/2019 3:31 PM [facility] TCO2 Cord Venous POCT 21(L) 22 - 30 mmol/L 07/11/2019 3:31 PM [facility] O2 Saturation % Cord Venous Calc POCT 45 % 07/11/2019 3:31 PM [facility] Site CORD STEFFANIE 07/11/2019 3:31 PM [facility] Sample iSTAT CORD V 07/11/2019 3:31 PM [facility] Blood CORD BLOOD SPECIMEN / Unknown 07/11/2019 3:25 PM FACILITY ADMINISTRATOR 07/11/2019 3:31 PM FACILITY ADMINISTRATOR Bonnie Pulido MD LAB - POINT OF CARE ORDERABLES [facility] [address] [place] [address] * (ABNORMAL) BLOOD GASES CORD ART (ISTAT) (07/11/2019 3:22 PM FACILITY ADMINISTRATOR) pH Cord Arterial POCT 7.24 7.20 - 7.34 pH 07/11/2019 3:31 PM [facility] pCO2 Cord Arterial POCT 56.9(H) 45 - 55 mm hg 07/11/2019 3:31 PM [facility] pO2 Cord Arterial POCT 17 12 - 25 mm hg 07/11/2019 3:31 PM [facility] HCO3 Cord Arterial POCT 24.3(H) 22 - 24 mmol/L 07/11/2019 3:31 PM [facility] BE Cord Arterial POCT -5(L) -2.9 - 8.3 mmol/L 07/11/2019 3:31 PM [facility] TCO2 Cord Arterial POCT 26 mmol/L 07/11/2019 3:31 PM [facility] O2 Saturation Cord Art % Calc POCT 18 % 07/11/2019 3:31 PM [facility] Site CORD ART 07/11/2019 3:31 PM [facility] Sample iSTAT CORD A 07/11/2019 3:31 PM [facility] Blood CORD BLOOD SPECIMEN / Unknown 07/11/2019 3:22 PM FACILITY ADMINISTRATOR 07/11/2019 3:31 PM FACILITY ADMINISTRATOR Bonnie Pulido MD LAB - POINT OF CARE ORDERABLES [facility] [address] [id number] * EPIDURAL BLOCK PERF (07/11/2019 8:24 AM FACILITY ADMINISTRATOR) Narrative Sommer Willis APRN-CRNA - 07/11/2019 8:24 AM FACILITY ADMINISTRATOR Sommer Willis APRN-CRNA 07/11/2019 8:26 AM Neuraxial Block Note Pre-Procedure: Procedure Name: Neuraxial Block Patient Location: OB Indications: labor analgesia Pre-Anesthetic Checklist: Patient identified, IV Checked, Risks and benefits discussed, Surgical consent verified, Monitors and equipment, Site examined, Pre-op evaluation done, Time-out performed, Informed consent obtained, Questions answered/anesthesia questions answered and Allergies reviewed Anticoagulation/ Anti-thrombosis status confirmed? Yes Monitors: BP and continuous pluse ox Patient Condition: awake Procedure: Block Type: Epidural Prep: Betadine Sterile Field: mask, cap/hat, sterile established and sterile gloves Approach: midline Skin was localized? Yes Skin localized with: lidocaine (XYLOCAINE) 1 % injection, 3 mL Epidural Block: Is this procedure for postop pain? No Needle Type: Tuohy Needle gauge: 18 G Needle length: 90 mm Placement Site: L3-L4 Number of Attempts: 2 Loss of Resistance: 6 air Catheter length at skin (cm): 10 CSF Aspirated from catheter: No Blood Aspirated: No Test Dose: lidocaine 1.5% with 1-200,000 epinephrine 3 mL at 07/11/2019 7:53 AM Test Dose Response: No Epidural Infusion Medications: Ropivacaine: 0.2% with Fentanyl 2mcg/mL in NS , at 12 mL/hr Degree of difficulty: none Procedure Tolerance: tolerated well Sensory Level: T7 Motor Blockade: Yes Position post procedure: left uterine displacement Vital Signs: Vital signs moniitored and stable throughout. See nursing vitals flowsheet for details. Start Time: 07/11/2019 7:46 AM End Time: 07/11/2019 7:53 AM Total Time: 7 Staff: Anesthesia Provider: Sommer Willis APRN-CRNA - performed the procedure Additional Notes: 1st attempt, catheter placed easily, but accidentally removed with drape. 2nd attempt very easy Lan Henry MD GENERAL ANESTHESIA O RDERABLES * BLOOD TYPE VERIFICATION (07/10/2019 7:12 PM FACILITY ADMINISTRATOR) ABO O 07/10/2019 8:04 PM FACILITY ADMINISTRATOR [facility] Rh Type Negative 07/10/2019 8:04 PM FACILITY ADMINISTRATOR [facility] Blood Bank BLOOD SPECIMEN / Unknown Venipuncture / Unknown 07/10/2019 7:12 PM FACILITY ADMINISTRATOR 07/10/2019 7:26 PM FACILITY ADMINISTRATOR Bonnie Pulido MD LAB - BLOOD BANK OR DERABLES Performing Organization Address City/[facility]/ZIP Co de Phone Number [facility] [address] [place] [address] * TYPE + SCREEN PANEL (07/10/2019 6:28 PM FACILITY ADMINISTRATOR) ABO O 07/10/2019 7:32 PM FACILITY ADMINISTRATOR [facility] Rh Type Negative 07/10/2019 7:32 PM FACILITY ADMINISTRATOR [facility] Comment:History checked. Antibody Screen Negative 07/10/2019 7:32 PM FACILITY ADMINISTRATOR [facility] Blood Bank BLOOD SPECIMEN / Unknown Venipuncture / Unknown 07/10/2019 6:28 PM FACILITY ADMINISTRATOR 07/10/2019 6:58 PM FACILITY ADMINISTRATOR Geraldine Pappas MD LAB - BLOOD BANK ORD ERABLES Performing Organization Address City/[facility]/ZIP Co de Phone Number [facility] [address] [place] [address] * SONOGRAM - COMPLETE (07/10/2019 2:14 PM FACILITY ADMINISTRATOR) Anatomical Region Laterality Modality Other 07/10/2019 2:14 PM FACILITY ADMINISTRATOR Narrative 07/10/2019 4:39 PM FACILITY ADMINISTRATOR [facility] PHONE: FAX: Pat. Name: YEIMI ALVARENGA Pat. No: [id number] Study Date: 07/10/2019 2:14pm , Age: 08 2000, 19 Pregnancies: 1 Height: 67 in Weight: 125 lb LMP: Unknown GA by US: 36w0d RADHA: 08/07/2019 GA Selected: 38w6d (From Known E) RADHA: 07/18/2019 Referring MD: Chace Saeed MD Edge Roller: Sandi Thompson, MASSIMO, RVT,NE CPT4: [id number] BMI: 19.58 Hist/Ind: SGA on outside scan MEASUREMENTS & AGE GROWTH EVALUATION Measurement GA Range Srce %for GA Ratios ----- ---- ------- BPD 9.4 cm 38w3d (52a5n-48q5j) Hadl BPD 70% FL/BPD 0.73 (0.71 - 0.87) HC 32.9 cm 37w2d (02s2i-27v7b) Hadl HC 9% FL/AC 0.22 (0.20 - 0.24) AC 31.1 cm 35w0d (70z9e-18f1a) Hadl AC 1% HC/AC 1.06 (0.90 - 1.09) FL 6.9 cm 35w3d (78q3o-78d9x) Hadl FL 1% CI 0.85 (0.70 - 0.86) HL 6.1 cm 35w0d (05f8v-29y2z) Donny HL <05 GA for sonogram 36w0d (41x2m-21l3c) Weight Estimate: based on (BPD,HC,AC,FL) Hadlock Weight: 2753 gm (2351-3155gm) Had : 6lbs, 1oz Normal: 3407 gm (2555-4258gm) Had Wt% 7% for 38w6d Heart Rate: 127 bpm Amniotic Fluid Index: 14.5cm (07.2-22.8) Q1: 1.8cm Q2: 3.5cm Q3: 7.2cm Q4: 2.0cm Biophysical Profile: 06/13 Breathin Tone: 2 NST: 2 Movement: 2 AFV: 2 EVAL, PLACENTA Presentation: cephalic Umbilical Cord: 3 Vessels Placenta: anterior Heart Rate: 127 bpm Amniotic Fluid Volume: normal DOPPLER Umbilical - Mid Cord S/D 2.87(1.52 - 3.30) PI 1.14 (0.53 - 1.10) * Middle Cerebral Artery PSV 77.2cm/s PI 0.94 (1.11 - 2.07) * Med PSV 61.1cm/s MoM 1.26(<1.5) Anatomy!Normal!Abnormal!Suboptimal!Prev. Seen!Comments Cranium ! ! ! x ! ! Mdl (CSP/Thal! ! ! x ! ! Ventricles ! ! ! x ! ! Choroid Plexu! ! ! x ! ! Cerebellum ! ! ! x ! ! Cisterna M. ! ! ! x ! ! Nuchal Fold ! ! ! x ! ! Profile ! ! ! x ! ! Nasal Bone ! ! ! x ! ! Lip ! ! ! x ! ! Spine ! ! ! x ! ! Lungs ! x ! ! ! ! 4 Chamber Hea! x ! ! ! ! LVOT ! ! ! x ! ! RVOT ! ! ! x ! ! 3 Vessel View! x ! ! ! ! Cross-over ! ! ! x ! ! Ductal Arch ! ! ! x ! ! Aortic Arch ! ! ! x ! ! Caval View ! ! ! x ! ! Situs ! x ! ! ! ! Diaphragm ! x ! ! ! ! Stomach ! x ! ! ! ! Bowel ! x ! ! ! ! Kidneys ! x ! ! ! ! Bladder ! x ! ! ! ! 3 Vessel Cord! x ! ! ! ! Cord In! x ! ! ! ! Upper Extremi! ! ! x ! ! Hands ! ! ! x ! ! Lower Extreme! ! ! x ! ! Feet ! ! ! x ! ! External Amanda! x ! ! ! !Male Placental Cor! x ! ! ! ! CLINICAL SUMMARY Study Number: 1 A single fetus is identified cephalic presentation. The measurements today are consistent with SGA. The RADHA selected is based on her LMP and a prior outside ultrasound examination. The amniotic fluid volume is normal. The placenta is anterior. No major malformations are seen. The patient was advised that ultrasound does not allow detection of all structural or chromosomal abnormalities. IMPRESSION: Single IUP at 38w6d growth restriction with normal amniotic fluid volume. Elevated umbilical artery pulsatility index with cephalization No major malformations are seen today within the limitations of ultrasound. RECOMMEND: Delivery is recommended Case discussed with Dr. Peck who requested delivery at [facility] L&D charge and resident notified and patient transported Thank you for allowing us the opportunity to care for your patient. Mary Lassiter MD <Electronic Signature> 07/10/2019 04:39pm Chace Saeed MD [facility] ORDERABLES
--- OUTSIDE RECORDS SUMMARY | 2024-10-15 13:11 | XMS_ITS | Clinical Summary ---
Author Organization [facility] Address [address] [place] [address] Phone Care Team Providers Care Back Stayer Name Role Phone Unavailable Primary Care Provider Unavailabl e Allergies Active Allergy Reactions Criticality Noted Date Comments Latex Rash Medium 09/27/2022 Penicillins Rash,Nausea 06/04/2016 Medications polyethylene glycol (GLYCOLAX, MIRALAX) 17 g Pack Take 17 g by mouth daily. Dissolve in 4-8 oz of liquid. Active MV & Min w/FA-DHA ( GUMMIES PO) Take by mouth. Active Ferrous Sulfate (Iron) 325 (65 Fe) MG Tablet Take 1 Tablet by mouth 2 times daily. Active PARoxetine (PAXIL) 30 MG Tablet 07/18/2023 Active Active Problems Problem Noted Date Diagnosed Date Adjustment disorder with depressed mood 10/20/19 16 Immunizations Immunization Administration Dates Next Due DTP Vaccine 1999,1999,1999 Hib Vaccine,unspecified Formulation 1999,0 1999,1999 Inactivated Polio Vaccine 1999,1999 Influenza Vaccine, Quadrivalent, PF 06/16/2021,1 09/12/2018,06/09/2017 Measles/Rubella Vaccine 06/01/2000 Meningococcal C Conjugate Vaccine 03/30/2010 Meningococcal Vaccine 03/23/2016 TDAP Vaccine 07/15/2022, 9,06/06/2019, 010 Varicella Vaccine Live 03/30/2010,06/01/2000 Family History Medical History Relation Name Comments No Known Problems Brother 1 Juan No Known Problems Brother 2 Nj Alcohol Abuse Father Truong No Known Problems Mother Sarai Relation Name Status Comments Brother 1 Juan Alive Brother 2 Nj Alive Father Truong Alive Mother Sarai Alive Social History Tobacco Use Types Packs/Day Years Used Date Smoking Tobacco: Never Smokeless Tobacco: Never Tobacco Cessation:Counseling Given: Not Answered Alcohol Use Standard Drinks/Week Comments No 0 (1 standard drink = 0.6 oz pur e alcohol) PHQ-2 Answer Date Recorded Total Score - Questions 1-9 0 03/2022 Sexually Active Control Partners Comments Yes Comments No Sex and Gender Information Value Date Recorded Sex Assigned at Not on file Legal Sex Female 11:38 PM CDT Gender Identity Not on file Sexual Orientation Not on file Last Filed Vital Signs Vital Sign Reading Time Taken Comments Blood Pressure 110/60 07/19/2023 4:18 PM [employer]IMING [employer]RIER Pulse 95 07/19/2023 4:18 PM [employer]ING [employer] Temperature 36.2 C (97.2 F) 07/19/2023 4:18 PM [employer]IMING M[employer]ER Respiratory Rate 16 07/19/2023 4:18 PM [employer]ING [employer]ER Oxygen Saturation 97% 07/19/2023 4:18 PM [employer]ING M[employer]ER Inhaled Oxygen Concentration - - Weight 73 kg (161 lb) 07/27/2022 8:37 AM PRIMING M[employer]TURE CARRIER Height 170.2 cm (5' 7 ) 07/27/2022 8:37 AM PRIMING MIXTURE CARRIER Body Mass Index 25.22 07/27/2022 8:37 AM PRIMING M[employer]TURE CARRIER Plan of Treatment Health Maintenance Due Date Last Done Comments Hepatitis C Virus (HCV) Screening 1999 Human Papillomavirus (HPV) Immunization (1 - 3-dose series) 2014 Hepatitis B Immunization (1 of 3 - 19+ 3-dose series) 2018 Pap Smear 2020 Influenza Immunization (#1) 05/05/202406/04, 07/13/2019, 06/09/2017 SARS-COV-2 Immunization ( season) 2024 DTaP/Tdap/Td Immunization (8 - Td or Tdap) 07/15/2032 07/15/2022, 06/18/2019, 06/06/2019, Additional history exists Respiratory Syncytial Virus (RSV) Immunization (Adult) (1 - 1-dose 75+ series) 2074 Meningococcal Immunization (ACWY) Completed 03/23/2016 Pneumococcal Immunization Combined Aged Out No longer eligible based on patient's age to complete this topic Rotavirus Immunization Aged Out No lo nger eligible based on patient's age to complete this topic Insurance MEDICAID [place]
--- OUTSIDE RECORDS SUMMARY | 2024-10-15 13:11 | XMS_ITS | Clinical Summary ---
Author Organization [facility] Address [address] [place] [address] Care Team Providers Care Field Operator Name Role Phone Unavailable Primary Care Provider Unavailabl e Source Comments [facility],non-owned Affiliates and Associated Physician Practices is amultiple site organization consisting of ambulatory clinics and hospital sitesin [place], [place], [place] and [place]. This disclosure is being madepursuant to the Care Everywhere program and may not contain all information available regarding this patient. Last updated 18.[facility] Allergies Active Allergy Reactions Criticality Noted Date Comments [place] Flavor Rash Medium 07/10/2019 Penicillins Rash,Dizziness Medium [...] Comments Blood Pressure 122/77 07/13/2019 9:35 AM SEARCH CONSULTANT Pulse 97 07/13/2019 9:35 AM SEARCH CONSULTANT Temperature 37.1 C (98.7 F) 07/13/2019 9:35 AM SEARCH CONSULTANT Respiratory Rate 18 07/13/2019 9:35 AM SEARCH CONSULTANT Oxygen Saturation 100% 07/13/2019 9:35 AM SEARCH CONSULTANT Inhaled Oxygen Concentration - - Weight 71.2 kg (157 lb) 07/10/2019 4:46 PM SEARCH CONSULTANT Height 170.2 cm (5' 7 ) 07/10/2019 4:46 PM SEARCH CONSULTANT Body Mass Index 24.59 07/10/2019 4:46 PM SEARCH CONSULTANT Plan of Treatment Health Maintenance Due Date Last Done Comments PAP SMEAR 1999 HIV SCREENING 2014 HPV VACCINE (1 - 3-dose series) 2014 CHLAMYDIA/GONORRHEA SCREENING 2015 HEPATITIS C SCREENING 04/26/2017 HEPATITIS B VACCINE (1 of 3 - 19+ 3-dose series) 2018 COVID-19 VACCINE ( - 2023-2 5 season) 2024 INFLUENZA VACCINE (#1) 2024 07/13/2019 DEPRESSION SCREENING 09/04/2024 DTAP/TDAP/TD VACCINES (2 - T d or Tdap) 06/18/2029 06/18/2019 ZOSTER VACCINE (1 of 2) 2049 HIB VACCINE Aged Out No longer eligi ble based on patient's age to complete this topic MENINGOCOCCAL (Group B) VACCINE Aged Out No longer eligible based on patient's age to complete this topic MENINGOCOCCAL VACCINE Aged Out No guillermo ismael eligible based on patient's age to complete this topic PNEUMOCOCCAL VACCINE Aged Out No long er eligible based on patient's age to complete this topic Advance Directives * Full Code (Latest Code Status on File) Date Activated Date Inactivated Comments 07/10/2019 5:22 PM 07/13/2019 8:19 PM
--- OUTSIDE RECORDS SUMMARY | 2024-10-15 13:11 | XMS_ITS | Encounter Summary ---
Author Organization [facility] Address [address] [facility] [place] [address] Phone Care Team Providers Care Chin Strap Cutter Name Role Phone Cheli Bazan MD Primary Care Provider [phone] Armand Thornton MD Primary Care Provider [phone] Bharati Meng MD Primary Care Provider [phone] Encounter Details Date Type Department Care Team (Late st Contact Info) Description 01/10/2022 Telephone [facility] [address] [place] [address] Provider, None [place] Social History Tobacco Use Types Packs/Day Years Used Date Smoking Tobacco: Never Smokeless Tobacco: Never Alcohol Use Standard Drinks/Week Comments No 0 (1 standard drink = 0.6 oz pur e alcohol) Sexually Active Control Partners Comments Never Comments No Sex and Gender Information Value Date Recorded Sex Assigned at Not on file Legal Sex Female 11:38 PM CDT Gender Identity Not on file Sexual Orientation Not on file COVID-19 Exposure Response Date Recorded In the last 10 days, have yo u been in contact with someone who was confirmed or suspected to have Coronavirus/COVID-19? No / Unsure 01/07/2022 6:06 PM CDT documented as of this encounter Miscellaneous Notes * Telephone Encounter - Alma Nelson - 01/10/2022 3:37 PM CDT ----- Message from Danielle Mendiola sent at 01/10/2022 1:22 PM CDT ----- Regarding: New Patient New [facility] Primary Provider Request Insurance of patient: Mat Name of person calling:Yeimi Relationship to patient:Chuy Preferred phone number:[phone] Alternate phone number:[phone] Region / Office location preference: [place] Provider preference (male/female, specific provider name): Bharati Meng Willing to see someone other than physician, such as [place], [place], resident? Yes Patient reason for appointment/any current symptoms:Establish Care Other information (including need for distribution a class lineman):No Route ALL calls to: [facility] PATIENT LAST MARKER documented in this encounter Plan of Treatment Not on file documented as of this encounter Visit Diagnoses Not on filedocumented in this encounter Care Teams Chin Strap Cutter Relationship Specialty Start Date End Date Cheli Bazan MD [address] [place] [address] PCP - General Pediatrics 10/05/15 01/16/22 Armand Thornton MD [address] [place] [address] PCP - General Family Medicine 01/17/22 02/07/22 Bharati Meng MD [address] [place] [address] PCP - General Family Medicine 02/08/22 02/19/24 documented as of this encounter
--- OUTSIDE RECORDS SUMMARY | 2024-10-15 13:11 | XMS_ITS | Clinical Summary ---
Author Organization [facility] Building [facility] Address [address] [place] [address] Care Team Providers Care Wrapper Hand Name Role Phone Armand Thornton MD Primary Care Provider [phone] Chace Saeed MD Unavailable [phone] Allergies Active Allergy Reactions Criticality Noted Date Comments Latex Rash Medium 09/27/2022 [place] Rash Medium 02/27/2019 Penicillins Nausea only,Rash Medium 06/04/2016 Medications prenat vit 55-oclm-mvkji-o m3,6 35-5-1.2-400 mg capsule Take 1 tablet [...] Date with 39 completed weeks gestation 09/2022 Encounters Date Type Department Care Team Description 08/23/2024 8:53 AM POTATO CHIP COOKER MACHINE - 08/23/2024 11:59 PM POTATO CHIP COOKER MACHINE Hospital Encounter [facility] [address] [place] [address] Pelvic and perineal pain Discharge Disposition: Discharge to home or self care from Last 3 Months Medical History Medical History Date Comments Hx Other Medical Right ankle fra cture x 3 HPV (human papilloma virus) infection Urinary tract infection Family History Medical History Relation Name Comments Breast cancer Maternal Grandmother Cancer , breast; Lung cancer Maternal Grandmother Cancer, lung; Relation Name Status Comments Maternal Grandmother Social History Tobacco Use Types Packs/Day Years [...] How often do you attend chur or gnosticist services? More than 4 times per year 10/05/2022 Do you belong to any clubs o r organizations such as episcopal groups, unions, fraternal or athletic groups, or [...] staff should administer the PHQ-9) 0 10/05/2022 [facility] [facility] - Occupational Stress [...] place to sleep or slept in a mcfp (including now)? No 10/05/2022 Personal Safety Answer Date Recorded Getting School Help Needed Denies 08/19 Comments No Sex and Gender Information Value Date Recorded Sex Assigned at Not on file Legal Sex Female 11:29 PM POTATO CHIP COOKER MACHINE Gender Identity Not on file Sexual Orientation Not on file Obstetrics History Para Term AB IAB SAB Ectopic Multiple Livin g Live Births 2 2 2 0 0 0 0 0 0 2 2 Date Outcome GA Total Labor Labor/2nd/3rd Weight Sex Type Anes PTL Acacia A1 A5 Name Clin 2018 Term M Vag-S pont Livin g 2022 Term 39w 0d 2h 04m 1h 17m/0h 43m/0h 04m 4.101 kg (9 lb 0.7 oz) M Vag-S pont Epidur al N Livin g 9 9 EMMAMI DT,LAZARO SHANEKA Rincon n, Chace francis MD Complications:None Delivery Location:This [facility] ([facility]) Last Filed Vital Signs Vital Sign Reading Time Taken Comments Blood Pressure 108/69 10/07/2022 7:00 AM POTATO CHIP COOKER MACHINE Pulse 81 10/07/2022 7:00 AM POTATO CHIP COOKER MACHINE Temperature 36.8 C (98.3 F) 10/07/2022 7:00 AM POTATO CHIP COOKER MACHINE Respiratory Rate 18 10/06/2022 11:36 PM POTATO CHIP COOKER MACHINE Oxygen Saturation 91% 10/05/2022 1:20 PM POTATO CHIP COOKER MACHINE Inhaled Oxygen Concentration - - Weight 75.3 kg (166 lb) 10/05/2022 6:30 AM POTATO CHIP COOKER MACHINE Height 170.2 cm (5' 7 ) 10/05/2022 6:30 AM POTATO CHIP COOKER MACHINE Body Mass Index 26 10/05/2022 6:30 AM POTATO CHIP COOKER MACHINE Plan of Treatment Health Maintenance Due Date Last Done Comments Cervical Cancer Screening 1999 Hepatitis C Screening 1999 HPV Vaccines (1 - 3-dose series) 2014 Hepatitis B Screening 2017 Regular Well Visit/Exam 18-64 2017 Depression Screening 09/27/2023 09/27/2022, 09/27/2022, 09/26/2022, Additional history exists Influenza Vaccine (#1) 2024 , 07/13/2019, 06/09/2017 DTaP/Tdap/Td Vaccine (8 - Td or Tdap) 07/15/2032 07/15/2022, 06/18/2019, 06/06/2019, Additional history exists Varicella Vaccines Completed 03/30/2010, 06/01/2000 Pneumococcal vaccine <65 Aged Out No longer eligible based on patient's age to complete this topic Procedures Procedure Name Priority Date/Time Associated Diagnosis Comments US PELVIS W ENDOVAGINAL Schedule Routine, Read Routine (OP Routine) 08/23/2024 10:00 AM POTATO CHIP COOKER MACHINE Pelvic and perineal pain from Last 3 Months Results * US Pelvis W Endovaginal (08/23/2024 10:00 AM POTATO CHIP COOKER MACHINE) Anatomical Region Laterality Modality Pelvis N/A Ultrasound 08/31/2024 3:36 PM POTATO CHIP COOKER MACHINE Narrative 08/31/2024 3:40 PM POTATO CHIP COOKER MACHINE EXAM DESCRIPTION: US PELVIS W ENDOVAGINAL REASON [...] Leonides Velazco M.D. RW: LIONEL Report ID: [id number] Reading Location: [id number] Procedure Note Leonides Velazco MD - 08/31/2024 [...] Leonides Velazco M.D. RW: LIONEL Report ID: [id number] Reading Location: [id number] us Chace Saeed MD [facility] US PROCEDURES Misty l Result from Last 3 Months Insurance [employer] CHOICE MEDICARE PPO Advance Directives For more information, please contact: [phone] * Full Code (Latest Code Status on File) Date Activated Date Inactivated Comments 10/05/2022 3:46 PM 10/07/2022 8:22 PM * Full Code Date Activated Date Inactivated Comments 10/05/2022 6:43 AM 10/05/2022 3:46 PM Full CPR in ca se of cardiopulmonary arrest Care Teams Wrapper Hand Relationship Specialty Start Date End Date Armand Thornton MD [address] [facility] [place] [address] PCP - General Family Medicine 01/21/22 Chace Saeed MD [address] [facility] [place] [address] News Clipping Cutter Obstetrics and Gynecology 10/07/22
== END 2024-10-15 12:46 | disposition home or self-care (01) ==
PROVIDERS: Emergency Provider Nurse Practitioner
DX: J06.9 Acute upper respiratory infection, unspecified (principal)
CPT/HCPCS: 87081; 87880; 99213; G0463

== ENCOUNTER 2025-06-14 16:20 | Emergency (ER) | payer OTHER, SELFPAY ==
--- OUTSIDE RECORDS SUMMARY | 2025-06-14 16:25 | XMS_ITS | Encounter Summary ---
Author Organization [facility] Address [address] [facility] [place] [address] Phone Care Team Providers Care Real Estate Associate Attorney Name Role Phone Bianca Lange APRN, MOHAMUD Primary Care Provide r Encounter Details Date Type Department Care Team (Late st Contact Info) Description 05/28/2025 Results Follow-Up [facility] - Family Medicine [facility] [address] [place] [address] Bianca Lange APRN, STOCK SORTER [address] [place] [address] WOLF SCREEN MULTIPLEX W/REFLEX ISSA, ERYTHROCYTE SEDIMENTATION RATE (ESR), C-REACTIVE PROTEIN (CRP) QUANT Social History Tobacco Use Types Packs/Day Years Used Date Smoking Tobacco: Never Smokeless Tobacco: Never Alcohol Use Standard Drinks/Week Comments No 0 (1 standard drink = 0.6 oz pur e alcohol) PHQ-2 Answer Date Recorded Total Score - Questions 1-9 0 05/05 AUDIT-C Answer Date Recorded Q1: How often do you have a drink containing alc ohol? Never 05/19/2025 Average Number of Drinks Not on file 025 Frequency of Binge Drinking Not on file 05/05 Sexually Active Control Partners Comments Yes Comments Unknown Sex and Gender Information Value Date Recorded Sex Assigned at Not on file Legal Sex Female 11:38 PM CDT Gender Identity Not on file Sexual Orientation Not on file documented as of this encounter Miscellaneous Notes * Telephone Encounter - Bianca Lange APRN, CNP - 06/05/2025 10:31 AM CDT Patient had lab work completed by previous provider. Please obtain copy. If she has not had TSH or B12 within last 6 months, please order both. * Telephone Encounter - Chiqui Vieira RN - 06/05/2025 10:21 AM CDT Neurology referral pended for pcp review. documented in this encounter Plan of Treatment Upcoming Encounters Date Type Department Care Team (Late st Contact Info) Description 08/22/2025 10:30 AM ANNUAL GREENHOUSE MANAGER Office Visit [facility] - Neurology [facility] [address] [place] [address] Sorin Zhao MD [address] [place] [address] documented as of this encounter Visit Diagnoses Diagnosis Word finding difficulty- Primary Other speech disturbance Stuttering Childhood onset fluency disorder documented in this encounter Additional Health Concerns Assessment Noted Time PHQ-9 Depression Total Score: 0 05/19/20 3:58 PM CDT documented as of this encounter Care Teams Real Estate Associate Attorney Relationship Specialty Start Date End Date Bianca Lange APRN, CNP [address] [place] [address] PCP - General Advanced Practice Nurse 05/19/25 documented as of this encounter
--- OUTSIDE RECORDS SUMMARY | 2025-06-14 16:25 | XMS_ITS | Clinical Summary ---
Author Organization [facility] Address [address] [place] [address] Phone Care Team Providers Care Shank Inspector Name Role Phone Bianca Lange APRN, EARTH SCIENCE TECHNICAL OFFICER Primary Care Provide r Allergies Active Allergy Reactions Criticality Noted Date Comments Latex Rash Medium 09/27/2022 Ab Flavoring Agent (Non-Screening) Rash Low 08/06/2023 Penicillins Rash,Nausea 06/04/2016 Medications polyethylene glycol (MiraLax) 17 g Pack Take 17 g by mouth daily as needed for Constipation - 1st line. Dissolve in 4-8 oz of liquid. Active PARoxetine (PAXIL) 40 MG TabletIndicati ons:Anxiety and depression Take 1 Tablet by mouth daily. 90 Tablet 1 5 Active polyethylene glycol (GLYCOLAX, MIRALAX) 17 g Pack Take 17 g by mouth daily. Dissolve in 4-8 oz of liquid. 025 Discontin ued(Thera py completed ) MV & Min w/FA-DHA ( GUMMIES PO) Take by mouth. 025 Discontin ued(Thera py completed ) Ferrous Sulfate (Iron) 325 (65 Fe) MG Tablet Take 1 Tablet by mouth 2 times daily. 025 Discontin ued(Auto- discontin ue per P&T) PARoxetine (PAXIL) 30 MG Tablet 3 025 Discontin ued(Reord er) Active Problems Problem Noted Date Diagnosed Date Anemia 05/19/2025 Anxiety and depression 05/19/2025 Chronic midline low back pain without sciatica 0 05/19/2025 Chronic constipation 05/19/2025 Adjustment disorder with depressed mood 10/20/19 16 Resolved Problems Problem Noted Date Diagnosed Date Resolved Date Strain of right rhomboid muscle 05/19/2025 05/19/2025 Encounters Date Type Department Care Team Description 05/28/2025 Results Follow-Up [facility] [address] [place] [address] Bianca Lange APRN, EARTH SCIENCE TECHNICAL OFFICER WOLF SCREEN MULTIPLEX W/REFLEX ISSA, ERYTHROCYTE SEDIMENTATION RATE (ESR), C-REACTIVE PROTEIN (CRP) QUANT 05/23/2025 Travel 05/19/2025 4:00 PM CDT Office Visit [facility] [address] [place] [address] Bianca Lange APRN, MOHAMUD Encounter to establish care with new provider (Primary Dx); Need for influenza vaccination; Chronic midline low back pain without sciatica; Anxiety and depression; Chronic constipation; Dry mouth; Family history of lupus erythematosus; Bilateral impacted cerumen; Bilateral hearing loss, unspecified hearing loss type; Gastroesophageal reflux disease, unspecified whether esophagitis present; Amenorrhea Discharge Disposition: Discharged to home or Selfcare 05/19/2025 Travel from Last 3 Months Immunizations Immunization Administration Dates Next Due DTAP VACCINE 02/09/2004, 1,1999,07/09 DTP Vaccine 1999,1999,1999 DTP-Hib 1999 Hepatitis B Vaccine, Pediatric/adolescent 11/11/2002,05/20/2002,04/17/2002 Hib Vaccine,unspecified Formulation 04/2001,1999,1999,07/19 Inactivated Polio Vaccine 02/09/2004,04/2001,1999,07/19 Influenza Vaccine, Quadrivalent, PF 06/16/2021,1 09/12/2018,06/09/2017 Influenza,Split Virus,Trivalent,Injectable,PF 05/19/2025,06/22/2024 MMR Vaccine 02/09/2004,06/01/2000 Measles/Rubella Vaccine 06/01/2000 Meningococcal C Conjugate Vaccine 03/30/2010 Meningococcal Vaccine 03/23/2016 Pneumococcal PCV, Unspecifie d Formulation 11/09/2000,06/01/2000 TDAP Vaccine 07/15/2022, 9,06/06/2019,05/12 Varicella Vaccine Live 03/30/2010,06/01/2000 Family History Medical History Relation Name Comments No Known Problems Brother 1 Juan No Known Problems Brother 2 Nj Alcohol Abuse Father Truong Leukemia/Lymphoma Maternal Aunt 1 Lupus Maternal Aunt 1 No Known Problems Maternal Grandfather Cancer Maternal Grandmother lung Lupus Maternal Grandmother Emphysema Mother Sarai Lupus Mother Sarai Breast Cancer Other maternal great -aunt Cancer Paternal Grandfather brain No Known Problems Paternal Grandmother Relation Name Status Comments Brother 1 Juan Alive Brother 2 Nj Alive Father Truong Maternal Aunt 1 Maternal Aunt 2 Alive Maternal Grandfather Maternal Grandmother Mother Sarai Alive Other Alive Paternal Grandfather Paternal Grandmother Alive Social History Tobacco Use Types Packs/Day [...] Sign Reading Time Taken Comments Blood Pressure 116/72 05/19/2025 3:58 PM CDT Pulse 89 05/19/2025 3:58 PM CDT Temperature 36.6 C (97.8 F) 05/19/2025 3:58 PM CDT Respiratory Rate 18 05/19/2025 3:58 PM CDT Oxygen Saturation 97% 07/19/2023 4:18 PM THICKENER OPERATOR Inhaled Oxygen Concentration - - Weight 77.5 kg (170 lb 14.4 oz) 05/19/2025 3:58 PM CDT Height 170.2 cm (5' 7) 05/19/2025 3:58 PM CDT Body Mass Index 26.77 05/19/2025 3:58 PM CDT Plan of Treatment Upcoming Encounters Date Type Department Care Team (Late st Contact Info) Description 08/22/2025 10:30 AM THICKENER OPERATOR Office Visit [facility] - Neurology [facility] [address] [place] [address] Sorin Zhao MD [address] [place] [address] Health Maintenance Due Date Last Done Comments Hepatitis C Virus (HCV) Screening 05/19/2026 Postponed from 1999 (Lower Priority for Now) Human Papillomavirus (HPV) Immunization (1 - 3-dose series) 05/19/2026 Postponed from 2014 (Patient Temporarily Declines) Pap Smear 05/19/2026 Postponed from 2020 (Lower Priority for Now) SARS-COV-2 Immunization ( season) 2026 Postponed from 05/05/2025 (Patient Temporarily Declines) DTaP/Tdap/Td Immunization (10 - Td or Tdap) 07/15/2032 07/15/2022, 06/18/2019, 06/06/2019, Additional history exists Respiratory Syncytial Virus (RSV) Immunization (Adult) (1 - 1-dose 75+ series) 2074 Pneumococcal Immunization Combined Aged Out 11/09/2000, 06/01/2000 No longer eligibl e based on patient's age to complete this topic Hepatitis B Immunization Completed 003, 05/20/2002, 04/17/2002 Meningococcal Immunization (ACWY) Completed 03/23/2016 Influenza Immunization Completed 5, 06/22/2024, 06/16/2021, Additional history exists Rotavirus Immunization Aged Out No lo nger eligible based on patient's age to complete this topic Procedures Procedure Name Priority Date/Time Associated Diagnosis Comments C-REACTIVE PROTEIN (CRP) QUANT Routine 05/23/2025 9:02 AM CDT Chronic midline low back pain without sciatica Dry mouth Family history of lupus erythematosus ERYTHROCYTE SEDIMENTATION RATE (ESR) Routine 05/23/2025 9:02 AM CDT Chronic midline low back pain without sciatica Dry mouth Family history of lupus erythematosus WOLF SCREEN MULTIPLEX W/REFLEX ISSA Routine 05/23/2025 9:02 AM CDT Chronic midline low back pain without sciatica Dry mouth Family history of lupus erythematosus CBO REMOVE IMPACTED EAR WAX IRRIGATION ONLY BILAT Routine 05/19/2025 4:50 PM CDT Bilateral impacted cerumen from Last 3 Months Results * ERYTHROCYTE SEDIMENTATION RATE (ESR) (05/23/2025 9:02 AM CDT) ESR (SED RATE, ERYTHROCYTE SEDIMENTATION RATE) 3 <20 mm/h 05/23/2025 9:44 AM CDT [facility] Comment: Patients presenting with increased level of fibrinogen, gamma globulins, or abnormally shaped RBCs could affect the results for the erythrocyte sedimentation rate (ESR). Results should be clinically correlated. Blood Venipuncture / Unknown 05/23/2025 9:02 AM CDT 05/23/2025 9:35 AM CDT us Bianca Lange REQUIREMENTS MANAGER, EARTH SCIENCE TECHNICAL OFFICER HEMATOLOGY ORDERABLES Final Result [facility] [address] [place] [address] * C-REACTIVE PROTEIN (CRP) QUANT (05/23/2025 9:02 AM CDT) C-REACTIVE PROTEIN 0.33 <0.50 mg/dL 05/23/2025 9:59 AM CDT [facility] Blood Venipuncture / Unknown 05/23/2025 9:02 AM CDT 05/23/2025 9:36 AM CDT us Bianca Lange APRN, CNP CHEMISTRY ORDERABLES Final Result [facility] [address] [place] [address] * WOLF SCREEN MULTIPLEX W/REFLEX ISSA (05/23/2025 9:02 AM CDT) WOLF SCR MULTIPLEX Negative Negative, See comment 05/23/2025 3:52 PM CDT [facility] Blood Venipuncture / Unknown 05/23/2025 9:02 AM CDT 05/23/2025 9:35 AM CDT Narrative [facility] - 05/23/2025 3:52 PM CDT Antibody testing was performed by multiplex flow immunoassay on the [employer] platform. us Bianca Lange APRN, CNP IMMUNOLOGY ORDERABLES Final Result Performing Organization Address City/[facility]/ZIP Co de Phone Number [facility] [address] [place] [address], [place] * CBO REMOVE IMPACTED EAR WAX IRRIGATION ONLY BILAT (05/19/2025 4:50 PM CDT) Narrative Bianca Lange APRN, CNP - 05/19/2025 4:50 PM CDT Bianca Lange APRN, CNP 05/19/2025 5:08 PM Ear Cerumen Removal Date/Time: 05/19/2025 4:50 PM Performed by: Bianca Lange APRN, CNP Authorized by: Bianca Lange APRN, CNP Consent: Consent obtained: Verbal Consent given by: Patient Risks, benefits, and alternatives were discussed: yes Procedure details: Location: L ear and R ear Procedure type: irrigation Procedure outcomes: cerumen removed Post-procedure details: Procedure completion: Tolerated us Bianca Lange APRN, CNP OUTPT PROCEDURE ORDER [place] Final Result from Last 3 Months Insurance MEDICAID [place] Care Teams Shank Inspector Relationship Specialty Start Date End Date Bianca Lange, REQUIREMENTS MANAGER, EARTH SCIENCE TECHNICAL OFFICER [address] [place] [address] PCP - General Advanced Practice Nurse 05/19/25
--- OUTSIDE RECORDS SUMMARY | 2025-06-14 16:26 | XMS_ITS | Clinical Summary ---
Author Organization [facility] Address [address] [place] [address] Care Team Providers Care Brick Dropper Name Role Phone Unavailable Primary Care Provider Unavailabl e Source Comments [facility],non-owned Affiliates and Associated Physician Practices is amultiple site organization consisting of ambulatory clinics and hospital sitesin [place], [place], [place] and [place]. This disclosure is being madepursuant to the Care Everywhere program and may not contain all information available regarding this patient. Last updated 18.[facility] [employer] Allergies Active Allergy Reactions Criticality Noted Date Comments [place] Flavor Rash Medium 07/10/2019 Penicillins Rash,Dizziness Medium 07/10/2019 Medications * Be aware that medications may not be up to date on this document. Alwaysverify current medications with the patient. ibuprofen (MOTRIN) 600 MG tabletIndicatio ns: state (HCC) Take 1 tablet by mouth every 6 hours as needed for Pain 40 tablet 1 9 Active docusate sodium (COLACE) 100 MG capsuleIndicati ons: state (HCC) Take 1 capsule by mouth 2 times daily 60 capsule 1 9 Active ferrous sulfate 325 (65 FE) MG tabletIndicatio ns:Iron Deficiency Take 1 tablet by mouth once daily Reasons: Iron Deficiency 100 tablet 9 Active Active Problems Problem Noted Date Diagnosed Date Decreased movement affecting , an tepartum 07/10/2019 Resolved Problems Problem Noted Date Diagnosed Date Resolved Date affected by growth restriction 07/11/2019 07/13/2019 Immunizations Immunization Administration Dates Next Due INFLUENZA VACCINE, QUADR. [...] drink = 0.6 oz pur e alcohol) Comments No Sex and Gender Information Value Date Recorded Sex Assigned at Not on file Legal Sex Female 7:35 AM DEMONSTRATOR SEWING TECHNIQUES Gender Identity Not on file Sexual Orientation Not on file Last Filed Vital Signs Vital Sign Reading Time Taken Comments Blood Pressure 122/77 07/13/2019 9:35 AM DEMONSTRATOR SEWING TECHNIQUES Pulse 97 07/13/2019 9:35 AM DEMONSTRATOR SEWING TECHNIQUES Temperature 37.1 C (98.7 F) 07/13/2019 9:35 AM DEMONSTRATOR SEWING TECHNIQUES Respiratory Rate 18 07/13/2019 9:35 AM DEMONSTRATOR SEWING TECHNIQUES Oxygen Saturation 100% 07/13/2019 9:35 AM DEMONSTRATOR SEWING TECHNIQUES Inhaled Oxygen Concentration - - Weight 71.2 kg (157 lb) 07/10/2019 4:46 PM DEMONSTRATOR SEWING TECHNIQUES Height 170.2 cm (5' 7) 07/10/2019 4:46 PM DEMONSTRATOR SEWING TECHNIQUES Body Mass Index 24.59 07/10/2019 4:46 PM DEMONSTRATOR SEWING TECHNIQUES Plan of Treatment Health Maintenance Due Date Last Done Comments HIV SCREENING 2014 HPV VACCINE (1 - 3-dose series) 2014 HEPATITIS C SCREENING 04/26/2017 HEPATITIS B VACCINE (1 of 3 - 19+ 3-dose series) 2018 DEPRESSION SCREENING 09/04/2024 COVID-19 VACCINE (1 - 2023-2 5 season) 2025 INFLUENZA VACCINE (#1) 2025 07/13/2019 DTAP/TDAP/TD VACCINES (2 - T d or Tdap) 06/18/2029 06/18/2019 ZOSTER VACCINE (1 of 2) 2049 HIB VACCINE Aged Out No longer eligi ble based on patient's age to complete this topic MENINGOCOCCAL (Group B) VACC INE SHARED DECISION-MAKING Aged Out No longer eligibl e based on patient's age to complete this topic MENINGOCOCCAL GROUPS A/C/Y/W VACCINE Aged Out No longer eligible b ased on patient's age to complete this topic PNEUMOCOCCAL VACCINE Aged Out No long er eligible based on patient's age to complete this topic Insurance [facility] MEDICAID [facility] Advance Directives * Full Code (Latest Code Status on File) Date Activated Date Inactivated Comments 07/10/2019 5:22 PM 07/13/2019 8:19 PM
--- OUTSIDE RECORDS SUMMARY | 2025-06-14 16:26 | XMS_ITS | Encounter Summary ---
Author Organization [facility] Address [address] [facility] [place] [address] Phone Care Team Providers Care Relocation Services Specialist Name Role Phone Cheli Bazan MD Primary Care Provider Armand Thornton MD Primary Care Provider [phone] Bharati Meng MD Primary Care Provider Bianca Lange APRN, GILL TENDER Primary Care Provide r Encounter Details Date Type Department Care Team (Late st Contact Info) Description 01/10/2022 Telephone [facility] [address] [place] [address] Provider, None [place] Social History [...] PM CDT ----- Regarding: New Patient New [facility] Primary Provider Request Insurance of patient: Mat Name of person calling:Yeimi Relationship to patient:Chuy Preferred phone number:[phone] Alternate phone number:[phone] Region / Office location preference: [place] Provider preference (male/female, specific provider name): Bharati Meng Willing to see someone other than physician, such as LEAD PROJECT ENGINEER, PA, resident? 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 [address] [place] [address] Sorin Zhao MD [address] [place] [address] documented as of this encounter Visit Diagnoses Not on filedocumented in this encounter Care Teams Relocation Services Specialist Relationship Specialty Start Date End Date Cheli Bazan MD [address] [place] [address] [address] [place] [address] PCP - General Pediatrics 10/05/15 01/16/22 Armand Thornton MD [address] [place] [address] [address] [place] [address] PCP - General Family Medicine 01/17/22 02/07/22 Bharati Meng MD [address] [place] [address] [place] [address] PCP - General Family Medicine 02/08/22 02/19/24 Bianca Lange, CAGE SUPERVISOR, GILL TENDER [address] [place] [address] PCP - General Advanced Practice Nurse 05/19/25 documented as of this encounter
--- NOTE | 2025-06-14 16:27 | ED_ITS ---
HPI - URI/Sore Throat General Chief Complaint: Upper Respiratory Infection Stated Complaint: Sore Throat Time Seen by Provider: 06/14/25 16:22 Source: patient Mode of arrival: ambulatory Limitations: no limitations History of Present Illness HPI Narrative: Yeimi is a 25-year-old female patient presenting to the clinic today with complaints of sore throat, body aches, and nasal drainage x2 days. He has been taking ibuprofen and Tylenol. Has had strep exposure-child has strep earlier this week. No known fevers or chills. MD elicited complaint: sore throat and nasal congestion Related Data Home Medications ?Medication ?Instructions ?Recorded ?Confirmed ?Last Taken ?Type medroxyprogesterone 150 mg/mL mg IM 08/15/24 Unknown History intramuscular suspension norgestimate 0.25 mg-ethinyl tablet 08/15/24 Unknown History estradiol 0.035 mg tablet (Veronica) paroxetine HCl 30 mg tablet mg PO 08/15/24 Unknown Hi story Allergies Allergy/AdvReac Type Severity Reaction Status Date / Time cinthia Allergy Mild Rash Verified 06/14/25 16:51 Penicillins Allergy Mild Rash Verified 06/14/25 16:51 Review of Systems Review of Systems: Pertinent positives per HPI. Patient denies any fever, chills, rash, headache, visual changes, dizziness, cough, shortness of breath, chest pain, palpitations, nausea, vomiting, diarrhea, constipation, abdominal pain, or any urinary issues. [facility] Past Medical History Medical History Constipation Anemia Bilateral ankle fractures Anxiety and depression Surgical History Surgical History [place] teeth extracted History of urinary tract surgery dilation Family History Family History Mother Family history non-contributory Social History Social History Smoking status: Never smoker Alcohol intake: never Additional living arrangements comments: Lives with fianc? and son Gender identity (if verbalized by the patient): Female Sexual Orientation (if Verbalized by the Patient): Straight or Heterosexual Spiritual care concerns: No Comments At the time of my signature, I reviewed and agree with the nursing past medical, surgical, social, and family history. There is no relevant family history pertinent to the patient complaint. Exam Narrative: General: Well-developed, well nourished, in no apparent distress Head: Normocephalic, atraumatic Eyes: Pupils equally round and reactive to light bilaterally, EOM intact, sclera and conjunctive clear, no discharge, lids normal Ears: TMs intact and clear, ear canals clear, no drainage, grossly hearing norm al. Nose: Nares patent, clear nasal discharge, no inflammation, no sinus tenderness. Mouth: Oral pharynx mildly red without lesions or masses, good dentition, MMM. Neck: Supple, trachea midline, no enlargement of anterior or posterior cervical nodes, no thyroid masses or goiter palpable. Cardio: Regular rate and rhythm, s1 and s2 normal, no murmur appreciated. Resp: Clear to auscultation bilaterally, no rhonchi, rales, wheezing or rubs Course Course Emergency Course: Portions of this record may have been created with voice recognition software. Level of Care: Express Care Visit Vital Signs Vital signs: Vital Signs Temperature 36.3 C L 06/14/25 16:37 Pulse Rate 92 06/14/25 16:37 Respiratory Rate 18 06/14/25 16:37 Blood Pressure 106/69 06/14/25 16:37 Pulse Oximetry 100 06/14/25 16:37 Oxygen Delivery Room Air 06/14/25 16:37 Temperature 36.3 C L 06/14/25 16:37 Pulse Rate 92 06/14/25 16:37 Respiratory Rate 18 06/14/25 16:37 Blood Pressure 106/69 06/14/25 16:37 Pulse Oximetry 100 06/14/25 16:37 Oxygen Delivery Room Air 06/14/25 16:37 Vital signs reviewed MDM - URI/Sore Throat MDM Narrative Medical decision making narrative: At the time of visit patient is resting comfortably on the exam table. Patient appears to be nontoxic. Complaints of sore throat, body aches, and nasal drainage x2 days. He has been taking ibuprofen and Tylenol. Has had strep exposure-child has strep earlier this week. No known fevers or chills. On exam patient has clear nasal drainage in mild oral pharynx redness, lung sounds are clear heart rates regular rate and rhythm. Strep test was ordered. Labs: Strep test was performed and positive in the clinic today. Plan: I suspect patient has strep pharyngitis. Prescription for azithromycin was sent to the pharmacy. Supportive measures were discussed with the patient and they voiced understanding discharge instructions and agrees to treatment plan. Return precautions reviewed Differential Diagnosis Differential diagnosis: Likely upper respiratory infection, otitis media, sinusitis, viral infection, bronchitis, influenza, pharyngitis and other (COVID) Lab Data Labs: Lab Results 06/14/25 Range/Units 17:00 POC Grp A Strep Screen Positive (Negative) Discharge Plan Discharge Clinical Impression: Acute streptococcal pharyngitis Patient Disposition: Home Condition: Stable Instructions: Antibiotic Form, Strep Throat (ED) Additional Instructions: Take prescription medications only as prescribed-azithromycin Strep test was positive in the clinic today. Change her toothbrush in 24 hours after initiation of the antibiotics Increase fluids and stay well hydrated May take Tylenol or motrin as directed on bottle for pain/fever May use Flonase 1 spray in each nare daily May take OTC antihistamines such as Zyrtec or Claritin daily as directed on bottle May apply Vicks vapor rub to chest to open sinuses Sinus rinses for congestion Cepacol spray, cough drops, throat lozenges, warm tea with honey/lemon, gargle salt water to soothe throat BRAT diet for diarrhea Clear liquids x 24 hours then advance as tolerated for nausea/vomiting Go to the ED if you develop a worsening in your condition- high fever not controlled by Tylenol or Motrin, dehydration, weakness, lethargy, shortness of breath, or chest pain. Follow up with your PCP in 3-5 days if symptoms persist. Patient Language: Yi Prescriptions: New azithromycin 250 mg tablet See Rx Instructions .ROUTE .COMPLEX Qty: 6 0RF Rx Instructions: For 250 mg dose pack: take 500 mg today (day 1), then 250 mg for 4 days (days 2-5) No Action norgestimate-ethinyl estradiol [Veronica] 0.25-35 mg-mcg tablet paroxetine HCl 30 mg tablet PO medroxyprogesterone 150 mg/mL suspension IM Follow-up/Referrals: UNKNOWN,DOCTOR [Primary Care Provider] Time of Disposition: 17:06 [facility] Nursing Documentation ED [facility] nursing documentation: reviewed/agree
[2025-06-14 16:37] VITALS: BP 106/69; PULSE 92; RESP 18; TEMP 36.3; O2SAT 100
[2025-06-14 17:03] LABS: EDSTREPNEGPOS1 Positive (Negative)
== END 2025-06-14 17:09 | disposition home or self-care (01) ==
PROVIDERS: Emergency Provider Nurse Practitioner Family
DX: J02.0 Streptococcal pharyngitis (principal); F41.9 Anxiety disorder, unspecified; F32.A Depression, unspecified
CPT/HCPCS: 87880; 99213; G0463

== ENCOUNTER 2025-08-15 14:57 | Emergency (ER) | payer OTHER, SELFPAY ==
[2025-08-15 15:05] VITALS: BP 126/77; PULSE 79; RESP 16; TEMP 36.4; O2SAT 99
[2025-08-15 15:15] LABS: EDSTREPNEGPOS1 Negative (Negative)
--- NOTE | 2025-08-15 15:23 | ED.URI ---
HPI - URI/Sore Throat General Chief Complaint: Upper Respiratory Infection Stated Complaint: strep test Time Seen by Provider: 08/15/25 15:15 Source: patient and RN notes reviewed Mode of arrival: ambulatory Limitations: no limitations History of Present Illness HPI Narrative: 25-year-old female presents Express Care complaining of sore throat, cough, congestion for 2-3 days. Patient denies any other upper respiratory symptoms, fevers, body aches, chills, nausea vomiting diarrhea, chest pain, difficulty breathing, or any other symptoms. Patient reports a sore throat pain . Patient denies any significant past medical problems. Related Data Home Medications ?Medication ?Instructions ?Recorded ?Confirmed ?Last Taken ?Type paroxetine HCl 30 mg tablet mg PO 08/15/24 Unknown History Allergies Allergy/AdvReac Type Severity Reaction Status Date / Time cinthia Allergy Mild Rash Verified 08/15/25 15:05 Penicillins Allergy Mild Rash Verified 08/15/25 15:05 Review of Systems Review of Systems: CONSTITUTIONAL: Denies fever, chills, or sweats. EYES: Denies visual changes, redness, or discharge. ENT: Denies rhinorrhea, congestion, or otalgia. Positive for sore throat CARDIOVASCULAR: Denies chest pain, palpitations, or edema. RESPIRATORY: Denies cough or dyspnea. GASTROINTESTINAL: Denies abdominal pain, nausea, vomiting, or diarrhea. GENITOURINARY: Denies dysuria or hematuria. SKIN: Denies rash or itching. MUSCULOSKELETAL: Denies back pain, joint pain, or myalgia. NEUROLOGIC: Denies headache, numbness, or weakness. PSYCHIATRIC: Denies anxiety or depression. All other systems reviewed are negative, except as documented in HPI. [facility] Past Medical History Medical History Constipation Anemia Bilateral ankle fractures Anxiety and depression Surgical History Surgical History [place] teeth extracted History of urinary tract surgery dilation Family History Family History Mother Family history non-contributory Social History Social History Smoking status: Never smoker Alcohol intake: never Additional living arrangements comments: Lives with kelly? and son Gender identity (if verbalized by the patient): Female Sexual Orientation (if Verbalized by the Patient): Straight or Heterosexual Spiritual care concerns: No Comments At the time of my signature, I reviewed and agree with the nursing past medical, surgical, social, and family history. There is no relevant family history pertinent to the patient complaint. Exam Narrative: GENERAL: This is a well-nourished, well-developed adult, in no apparent distress. They are non ill-appearing, nontoxic appearing. HEAD: normocephalic, atraumatic. EYES: Sclera clear/white. Conjunctiva normal. Vision is grossly intact. Extraocular movements intact EARS: External ears normal, auditory canals clear and without drainage, TMs normal without perforation. Hearing grossly intact. NOSE: External nose normal with no obvious nasal discharge, nasal turbinates erythematous, no rhinorrhea. THROAT: Mucous membranes moist, posterior pharynx injected, no swelling. Uvula midline. Postnasal drip present NECK: Neck supple, non-tender without lymphadenopathy, masses or thyromegaly. CARDIOVASCULAR: Regular rate and rhythm without murmurs, gallops, or rubs. RESPIRATORY: Clear to auscultation. Breath sounds equal bilaterally. No wheezes, rales, or rhonchi. SKIN: warm, Dry, intact with no suspicious lesions or rash, good texture and turgor. NEURO: awake, alert, and oriented to person, place and time. There were no obvious focal neurologic abnormalities. EXTREMITIES: No joint tenderness, effusion, or edema noted. BACK: Nontender without deformity. Course Course Level of Care: Express Care Visit Vital Signs Vital signs: Vital Signs Temperature 97.6 F 08/15/25 15:05 Pulse Rate 79 08/15/25 15:05 Respiratory Rate 16 08/15/25 15:05 Blood Pressure 126/77 08/15/25 15:05 Pulse Oximetry 99 08/15/25 15:05 Oxygen Delivery Room Air 08/15/25 15:05 Temperature 97.6 F 08/15/25 15:05 Pulse Rate 79 08/15/25 15:05 Respiratory Rate 16 08/15/25 15:05 Blood Pressure 126/77 08/15/25 15:05 Pulse Oximetry 99 08/15/25 15:05 Oxygen Delivery Room Air 08/15/25 15:05 [facility] Narrative Medical decision making narrative: Rapid strep negative. A throat culture is pending. Likely viral etiology. Given severity of symptoms of her sore throat will give her 1 time dose of dexamethasone. Discussed physical exam findings. Advised supportive measures and signs/symptoms to go to the ER. Pt is appropriate for outpt treatment and f/u. Differential Diagnosis Differential Diagnosis: Differential diagnostic considerations for upper respiratory infection include upper respiratory infection, croup, otitis media, sinusitis, viral infection, bronchitis, influenza, pharyngitis, strep, uvulitis. Lab Data [facility] Lab Attestation statement: I personally reviewed the patient's lab results. Labs: Lab Results 08/15/25 Range/Units 15:14 POC Grp A Strep Screen Negative (Negative) Critical Care Time Critical Care Time Critical Care Time: No Discharge Plan Discharge Clinical Impression: Upper respiratory infection Qualifiers: URI type: unspecified viral URI Qualified Code(s): J06.9 - Acute upper respiratory infection, unspecified Patient Disposition: Home Condition: Stable Instructions: Antibiotic Form, Upper Respiratory Infection (ED) Additional Instructions: Your rapid strep swab was negative today at [facility]. You will be notified in a few days if the culture comes back positive for strep, and appropriate antibiotics will be called in for you at that time. Your symptoms are likely due to a viral illness, which is not treated with antibiotics. Take the 1 time dose of dexamethasone. Take it today. Viral symptoms can be present for up to 10-14 days. Take Tylenol or Motrin as needed for fever or pain. Follow instructions on the bottle Rest and stay hydrated. Follow up with your PCP in 5-7 days if symptoms are not improving. Go to the ER immediately if he developed chest pain, vomiting, difficulty breathing or swallowing, or any serious concerns Patient Language: Belarusian Prescriptions: New dexamethasone 2 mg tablet 10 mg PO ONCE 1 Days Qty: 5 0RF No Action paroxetine HCl 30 mg tablet PO Follow-up/Referrals: UNKNOWN,DOCTOR [Primary Care Provider] Time of Disposition: 15:22
== END 2025-08-15 15:29 | disposition home or self-care (01) ==
DX: J06.9 Acute upper respiratory infection, unspecified (principal); F41.9 Anxiety disorder, unspecified; F32.A Depression, unspecified
CPT/HCPCS: 87081; 87880; 99213; G0463